=== PATIENT | female | born 1965 | race Two or more races ===

== ENCOUNTER 2016-09-29 23:21 | Emergency (ER) | payer SELFPAY ==
[~2016-09-29] VITALS: Ht 162.6 cm; Wt 65.8 kg
[~2016-09-29 23:21] MED LIST: ACYC400T PO; ALPR0.257 PO; ALPR0.5T6 PO; AMIT25TA PO; ASPI-482 PO; CYAN1TAB28 PO; ORPH100T PO; RANI150C PO; SIMV10TA3 PO; TRAM50TA PO
[2016-09-30] MEDS ORDERED: PROCHLORPERAZINE 10 MG/2 ML VIAL. IV ONE
[2016-09-30] MEDS ORDERED: KETOROLAC TROMETHAMINE 30 MG/ML SYRINGE. IV ONE
[2016-09-30] MEDS ORDERED: DIPHENHYDRAMINE 50 MG/ML VIAL IVP ONE ×2 (00:45)
[2016-09-30] MEDS ORDERED: DIPHENHYDRAMINE 50 MG/ML VIAL IM ONE (00:45)
--- NOTE | 2016-09-30 01:36 | PHYS DOC ---
Past Medical History Past Medical History: Anxiety, High Cholesterol Additional Past Medical Histor: bells palsy Past Surgical History: Tonsillectomy, Other Additional Past Surgical Histo: bilat breast reduction Alcohol Use: None Drug Use: None Adult General Chief Complaint Chief Complaint: HEADACHE HPI HPI Patient is a 51 year old female who presents with gradual onset headache since end of work today. She notes bilateral occiput headache that generalized including behind both eyes; throbbing and aching. She was driving home and began to feel anxious, dizzy and have ringing in ears. This improved when she pulled over and did breathing exercises. She also notes developing bilateral eye redness during this time. She denies specific eye pain or vision changes. She has current left bells palsy, but denies new numbness/tingling/weakness. She denies chest pain, dyspnea, f/c, n/v, photophobia, phonophobia, lacrimation , ear pain. Review of Systems Review of Systems Constitutional: Denies fever or chills [] Eyes: Denies change in visual acuity, redness, or eye pain [] HENT: Denies nasal congestion or sore throat [] Respiratory: Denies cough or shortness of breath [] Cardiovascular: No additional information not addressed in HPI [] GI: Denies abdominal pain, nausea, vomiting, bloody stools or diarrhea [] : Denies dysuria or hematuria [] Musculoskeletal: Denies back pain or joint pain [] Integument: Denies rash or skin lesions [] Neurologic: Denies focal weakness or sensory changes [] Endocrine: Denies polyuria or polydipsia [] Current Medications Current Medications Current Medications Medications (Trade) Dose Ordered Sig/Matias Start Time Stop Time Status Last Admin Dose Admin Diphenhydramine HCl (Benadryl) 25 mg 1X ONCE 09/30/16 00:45 09/30/16 00:46 DC 09/30/16 00:38 25 MG Ketorolac Tromethamine (Toradol) 15 mg 1X ONCE 09/30/16 00:00 09/30/16 00:05 DC 09/30/16 00:03 15 MG Prochlorperazine Edisylate (Compazine) 10 mg 1X ONCE 09/30/16 00:00 09/30/16 00:05 DC 09/30/16 00:02 10 MG Allergies Allergies Allergies Coded Allergies Type Severity Reaction Last Updated Verified azithromycin Allergy Intermediate 04/12/15 No niacin Allergy Intermediate burning sensation 04/12/15 Yes Physical Exam Physical Exam Constitutional: Well developed, well nourished, no acute distress, non-toxic appearance. [] HENT: Normocephalic, atraumatic, bilateral external ears normal, oropharynx moist, no oral exudates, nose normal. [] Eyes: PERRLA, EOMI, conjunctiva normal, no discharge; Mild bilateral scleral injection. Clear corneas. [] Neck: Normal range of motion, supple. [] Cardiovascular:Heart rate regular rhythm [] Lungs & Thorax: Bilateral breath sounds clear to auscultation [] Abdomen: Bowel sounds normal, soft, no tenderness. [] Skin: Warm, dry, no erythema, no rash. [] Back: Normal ROM. [] Extremities: ROM intact, no edema. [] Neurologic: Alert and oriented X 3, normal motor function, normal sensory function, no focal deficits noted, cranial nerves II through XII intact other than mild left facial weakness including forehead, no pronator drift. [] Psychologic: Affect normal, judgement normal, mood normal. [] Current Patient Data Vital Signs Vital Signs Date Time Temp Pulse Resp B/P Pulse Ox O2 Delivery O2 Flow Rate FiO2 09/30/16 02:16 63 20 134/83 94 Room Air 09/29/16 23:30 98.0 98.0 Course & Med Decision Making Course & Med Decision Making Pertinent Labs and Imaging studies reviewed. (See chart for details) She required a second dose of benadryl for akathisia symptoms after meds. She is now feeling much better and would like to go home. Return precautions given. She and understood and agreed with plan. Dragon Disclaimer Dragon Disclaimer This electronic medical record was generated, in whole or in part, using a voice recognition dictation system. Departure Departure Impression: Primary Impression: Headache Disposition: HOME, SELF-CARE Condition: STABLE Referrals: MATT BRAR MD (PCP) Patient Instructions: General Headache Without Cause, [id number] Additional Instructions: Follow-up with your primary care doctor. Return for any concerns. Problem Qualifiers Primary Impression: Headache Headache type: unspecified Headache chronicity pattern: acute headache Intractability: not intractable Qualified Code: R51 - Headache Narciso HAAS MD 28, 2017 01:36
[2016-09-30 02:16] VITALS: BP 134/83
== END 2016-09-30 02:17 | disposition home or self-care (01) ==
LOC: ER 23:21
DX: R51 Headache (principal); F41.9 Anxiety disorder, unspecified; E78.00 Pure hypercholesterolemia, unspecified; Z88.1 Allergy status to other antibiotic agents
CPT/HCPCS: 96374; 96375; 99284; J0780; J1200; J1885

== ENCOUNTER 2017-09-19 20:24 | Inpatient (IN) | payer BC ==
[2017-09-19 20:47] LABS: ADD MAN DIFF? NO
[2017-09-19 20:49] LABS: BASO # 0.1 x10^3/uL (0.0-0.2); BASO % 1 % (0-3); EOS # 0.1 x10^3/uL (0.0-0.7); EOS % 2 % (0-3); HEMATOCRIT 40.2 % (36.0-47.0); HEMOGLOBIN 13.8 g/dL (12.0-15.5); LYMPH # 2.8 x10^3/uL (1.0-4.8); LYMPH % 49 % (24-48); MEAN CORPUSCULAR HEMOGLOBIN 32 pg (25-35); MEAN CORPUSCULAR HGB CONC 34 g/dL (31-37); MEAN CORPUSCULAR VOLUME 93 fL (79-100); MONO # 0.4 x10^3/uL (0.0-1.1); MONO % 7 % (0-9); NEUT # 2.3 x10^3uL (1.8-7.7); NEUT % 41 % (31-73); PLATELET COUNT 347 x10^3/uL (140-400); RED BLOOD COUNT 4.32 x10^6/uL (3.50-5.40); RED CELL DISTRIBUTION WIDTH 13.1 % (11.5-14.5); WHITE BLOOD COUNT 5.6 x10^3/uL (4.0-11.0)
[2017-09-19] MEDS: ASPIRIN 325 MG TABLET PO (20:56)
[2017-09-19] MEDS: NITROGLYCERIN SUBLINGUAL 0.4 MG BOTTLE OF 25. SL (20:56)
[2017-09-19 21:04] LABS: ANION GAP 11 (6-14); BLOOD UREA NITROGEN 12 mg/dL (7-20); BUN/CREATININE RATIO 13 (6-20); CALCIUM 8.7 mg/dL (8.5-10.1); CARBON DIOXIDE 28 mmol/L (21-32); CHLORIDE 103 mmol/L (98-107); CREATININE 0.9 mg/dL (0.6-1.0); GFR 66.3; GLUCOSE 119 mg/dL (70-99); INR 0.9 (0.8-1.1); POTASSIUM 3.9 mmol/L (3.5-5.1); PROTHROMBIN TIME PATIENT 11.6 SEC (11.7-14.0); SODIUM 142 mmol/L (136-145)
[2017-09-19 21:05] LABS: PARTIAL THROMBOPLASTIN TIME 29 SEC (24-38)
[2017-09-19 21:09] LABS: ALBUMIN 3.6 g/dL (3.4-5.0); ALK PHOS 127 U/L (46-116); ALT (SGPT) 59 U/L (14-59); AST (SGOT) 30 U/L (15-37); TOTAL BILIRUBIN 0.3 mg/dL (0.2-1.0); TOTAL PROTEIN 7.1 g/dL (6.4-8.2)
[2017-09-19 21:14] LABS: TROPONINI < 0.017 ng/mL (0.000-0.055)
[2017-09-19 21:15] LABS: NT-PRO BNP 28 pg/mL (0-124)
[2017-09-19] MEDS: MORPHINE SULFATE 4 MG/ML DISP.SYRIN. IV/SQ (21:22)
[2017-09-19] MEDS ORDERED: NITROGLYCERIN SUBLINGUAL 0.4 MG BOTTLE OF 25. SL (22:15)
[2017-09-19] MEDS ORDERED: MORPHINE SULFATE 2 MG/ML DISP.SYRIN. IV (22:15)
[2017-09-19] MEDS ORDERED: ONDANSETRON PF 4 MG/2 ML VIAL. IV (22:15)
[2017-09-19] MEDS: ACETAMINOPHEN 325 MG TABLET. PO (23:38)
[2017-09-20] MEDS ORDERED: traMADol 50 MG TABLET PO (01:30)
[2017-09-20] MEDS: ALPRAZolam 0.5 MG TABLET PO (01:36)
[2017-09-20] MEDS: IV NORMAL SALINE 1000ML BAG 1,000 ML IV ×4 (03:22→12:12)
[2017-09-20 05:46] LABS: ADD MAN DIFF? NO
[2017-09-20 06:01] LABS: BASO % 1 % (0-3); EOS # 0.1 x10^3/uL (0.0-0.7); EOS % 2 % (0-3); HEMATOCRIT 37.7 % (36.0-47.0); HEMOGLOBIN 12.4 g/dL (12.0-15.5); LYMPH # 3.3 x10^3/uL (1.0-4.8); LYMPH % 44 % (24-48); MEAN CORPUSCULAR HEMOGLOBIN 31 pg (25-35); MEAN CORPUSCULAR HGB CONC 33 g/dL (31-37); MEAN CORPUSCULAR VOLUME 94 fL (79-100); MONO # 0.5 x10^3/uL (0.0-1.1); MONO % 6 % (0-9); NEUT # 3.5 x10^3uL (1.8-7.7); NEUT % 48 % (31-73); PLATELET COUNT 316 x10^3/uL (140-400); RED CELL DISTRIBUTION WIDTH 13.1 % (11.5-14.5); WHITE BLOOD COUNT 7.4 x10^3/uL (4.0-11.0)
[2017-09-20 06:48] LABS: ANION GAP 8 (6-14); BLOOD UREA NITROGEN 14 mg/dL (7-20); CALCIUM 8.6 mg/dL (8.5-10.1); CARBON DIOXIDE 29 mmol/L (21-32); CHLORIDE 105 mmol/L (98-107); CREATININE 0.8 mg/dL (0.6-1.0); GFR 75.9; GLUCOSE 102 mg/dL (70-99); POTASSIUM 3.7 mmol/L (3.5-5.1); SODIUM 142 mmol/L (136-145)
[2017-09-20 07:13] LABS: TROPONINI < 0.017 ng/mL (0.000-0.055)
[2017-09-20 07:23] LABS: BILIRUBIN,URINE NEGATIVE (NEG); CLARITY,URINE CLEAR; COLOR,URINE YELLOW; GLUCOSE,URINE NEGATIVE (NEG); NITRITE,URINE NEGATIVE (NEG); PROTEIN,URINE NEGATIVE (NEG-TRACE); UROBILINOGEN,URINE 0.2 mg/dL (0.2 mg/dL)
[2017-09-20 07:35] LABS: BACTERIA,URINE 0 /HPF (0-FEW); RBC,URINE 0 /HPF (0-2); SQUAMOUS EPITHELIAL CELL,UR MOD /LPF
[2017-09-20] MEDS: ASPIRIN CHEWABLE 81 MG TABLET. PO (08:03)
[2017-09-20] MEDS ORDERED: ACETAMINOPHEN 325 MG TABLET. PO (08:45)
[2017-09-20] MEDS ORDERED: KETOROLAC 15 MG/ML VIAL. IV (08:45)
[2017-09-20 10:36] LABS: TROPONINI < 0.017 ng/mL (0.000-0.055)
[2017-09-20 10:42] LABS: CHOLESTEROL 251 mg/dL (0-200); HDLC 29 mg/dL (40-60); NON-HDL CHOLESTEROL 222 mg/dL (0-129); TRIGLYCERIDES 529 mg/dL (0-150); VLDLC 106 mg/dL (0-40)
[2017-09-20 10:46] LABS: CHOLESTEROL/HDL RATIO 8.7
[2017-09-20] MEDS: MORPHINE SULFATE 2 MG/ML DISP.SYRIN. IV (10:55)
[2017-09-20] MEDS ORDERED: ASPIRIN ENTERIC COATED 81 MG TABLET.DR. PO (17:00)
[2017-09-20] MEDS ORDERED: ATORVASTATIN CALCIUM 10 MG TABLET. PO (21:00)
[2017-09-20] MEDS ORDERED: AMITRIPTYLINE HCL 25 MG TABLET. PO (21:00)
[2017-09-20] MEDS ORDERED: ATORVASTATIN CALCIUM 40 MG TABLET. PO (21:00)
== END 2017-09-20 19:05 | disposition home or self-care (01) | DRG 392 ==
LOC: ER 20:24 → 5 NORTH 21:54
DX: K21.9 Gastro-esophageal reflux disease without esophagitis (principal); E78.00 Pure hypercholesterolemia, unspecified; R07.89 Other chest pain; E78.5 Hyperlipidemia, unspecified; I10 Essential (primary) hypertension; Z82.49 Family history of ischemic heart disease and other diseases of the circulatory system; Z83.3 Family history of diabetes mellitus; F41.9 Anxiety disorder, unspecified; G51.0 Bell's palsy; Z88.1 Allergy status to other antibiotic agents
CPT/HCPCS: 36415; 71045; 80048; 80053; 80061; 81001; 83880; 84484; 85025; 85379; 85610; 85730; 93005; J2270; J7030

== ENCOUNTER → 2017-10-12 | Outpatient (CLI) | payer BC | END | disposition home or self-care (01) | LOC: ECHO 12:58 | DX: R07.9 Chest pain, unspecified (principal) | CPT/HCPCS: 93017; 93350 ==

== ENCOUNTER 2017-10-29 10:36 | Inpatient (IN) | payer BC ==
[2017-10-29 12:23] LABS: BILIRUBIN,URINE NEGATIVE (NEG); CLARITY,URINE CLEAR; COLOR,URINE YELLOW; GLUCOSE,URINE NEGATIVE (NEG); NITRITE,URINE NEGATIVE (NEG); PROTEIN,URINE NEGATIVE (NEG-TRACE); UROBILINOGEN,URINE 0.2 mg/dL (0.2 mg/dL)
[2017-10-29 12:24] LABS: BARBITURATES NEG (NEG); BENZODIAZEPINES POS (NEG); CANNABINOIDS NEG (NEG); COCAINE NEG (NEG); METHADONE NEG (NEG); OPIATES NEG (NEG); PHENCYCLIDINE NEG (NEG)
[2017-10-29 12:27] LABS: AMPHETAMINE/METHAMPHETAMINE NEG (NEG); ETHANOL, URINE NEG (NEG)
[2017-10-29 12:30] LABS: ADD MAN DIFF? NO
[2017-10-29 12:37] LABS: BACTERIA,URINE 0 /HPF (0-FEW); RBC,URINE 0 /HPF (0-2); SQUAMOUS EPITHELIAL CELL,UR MOD /LPF; WBC,URINE 0 /HPF (0-4)
[2017-10-29 12:38] LABS: BASO % 1 % (0-3); EOS % 1 % (0-3); HEMATOCRIT 40.1 % (36.0-47.0); HEMOGLOBIN 13.6 g/dL (12.0-15.5); LYMPH # 2.3 x10^3/uL (1.0-4.8); LYMPH % 39 % (24-48); MEAN CORPUSCULAR HEMOGLOBIN 31 pg (25-35); MEAN CORPUSCULAR HGB CONC 34 g/dL (31-37); MEAN CORPUSCULAR VOLUME 91 fL (79-100); MONO # 0.4 x10^3/uL (0.0-1.1); MONO % 6 % (0-9); NEUT # 3.1 x10^3uL (1.8-7.7); NEUT % 53 % (31-73); PLATELET COUNT 309 x10^3/uL (140-400); RED CELL DISTRIBUTION WIDTH 12.1 % (11.5-14.5); WHITE BLOOD COUNT 5.9 x10^3/uL (4.0-11.0)
[2017-10-29 12:54] LABS: PROTHROMBIN TIME PATIENT 12.3 SEC (11.7-14.0)
[2017-10-29 12:58] LABS: ANION GAP 10 (6-14); BLOOD UREA NITROGEN 13 mg/dL (7-20); CARBON DIOXIDE 25 mmol/L (21-32); CHLORIDE 105 mmol/L (98-107); CREATININE 0.7 mg/dL (0.6-1.0); GFR 88.6; GLUCOSE 113 mg/dL (70-99); SODIUM 140 mmol/L (136-145)
[2017-10-29 13:00] LABS: TROPONINI < 0.017 ng/mL (0.000-0.055)
[2017-10-29 13:03] LABS: ALBUMIN 3.3 g/dL (3.4-5.0); ALK PHOS 119 U/L (46-116); ALT (SGPT) 36 U/L (14-59); AST (SGOT) 21 U/L (15-37); DIRECT BILIRUBIN 0.1 mg/dL (0.0-0.2); LIPASE 129 U/L (73-393); MAGNESIUM 2.1 mg/dL (1.8-2.4); TOTAL BILIRUBIN 0.4 mg/dL (0.2-1.0); TOTAL PROTEIN 7.2 g/dL (6.4-8.2)
[2017-10-29 13:04] LABS: NT-PRO BNP 77 pg/mL (0-124); THYROID STIM HORMONE (TSH) 1.811 uIU/mL (0.358-3.74)
[2017-10-29 13:04] LABS: CKMB INDEX 0.9 % (0-4); CREATINE KINASE 116 U/L (26-192)
[2017-10-29 13:23] LABS: NEG OBC UR NEG; POS OBC UR POS; U PREG PATIENT NEGATIVE (NEG)
[2017-10-29] MEDS ORDERED: VANCOMYCIN PER PHARMACY MC (14:15)
[2017-10-29] MEDS ORDERED: PIP/TAZO PER PHARMACY MC (14:15)
[2017-10-29] MEDS ORDERED: levOFLOXacin PER PHARMACY. MC (14:15)
[2017-10-29] MEDS ORDERED: ONDANSETRON PF 4 MG/2 ML VIAL. IV ×2 (14:30→16:30)
[2017-10-29] MEDS: ASPIRIN 325 MG TABLET PO (14:49)
[2017-10-29] MEDS ORDERED: traMADol 50 MG TABLET PO (16:30)
[2017-10-29] MEDS ORDERED: MORPHINE SULFATE 2 MG/ML DISP.SYRIN. IV (16:30)
[2017-10-29] MEDS ORDERED: hydrALAZINE 20 MG/ML VIAL. IVP (16:30)
[2017-10-29] MEDS ORDERED: DOCUSATE SODIUM 100 MG CAPSULE. PO (16:30)
[2017-10-29 18:16] LABS: TROPONINI < 0.017 ng/mL (0.000-0.055)
[2017-10-29 19:31] LABS: VITAMIN-B12 1630 pg/mL (247-911)
[2017-10-29] MEDS: ENOXAPARIN 40 MG/0.4 ML SYRINGE. SQ (21:00)
[2017-10-29 21:15] LABS: TROPONINI < 0.017 ng/mL (0.000-0.055)
[2017-10-29] MEDS: ALPRAZolam 0.5 MG TABLET PO (23:51)
[2017-10-29] MEDS: ACETAMINOPHEN 325 MG TABLET. PO (23:51)
[2017-10-30 05:17] LABS: ADD MAN DIFF? NO
[2017-10-30 05:34] LABS: BASO % 1 % (0-3); EOS # 0.1 x10^3/uL (0.0-0.7); EOS % 2 % (0-3); HEMATOCRIT 40.3 % (36.0-47.0); HEMOGLOBIN 13.5 g/dL (12.0-15.5); LYMPH # 2.9 x10^3/uL (1.0-4.8); LYMPH % 50 % (24-48); MEAN CORPUSCULAR HEMOGLOBIN 31 pg (25-35); MEAN CORPUSCULAR HGB CONC 34 g/dL (31-37); MEAN CORPUSCULAR VOLUME 92 fL (79-100); MONO # 0.3 x10^3/uL (0.0-1.1); MONO % 6 % (0-9); NEUT # 2.5 x10^3uL (1.8-7.7); NEUT % 43 % (31-73); PLATELET COUNT 299 x10^3/uL (140-400); RED BLOOD COUNT 4.38 x10^6/uL (3.50-5.40); RED CELL DISTRIBUTION WIDTH 12.5 % (11.5-14.5); WHITE BLOOD COUNT 5.9 x10^3/uL (4.0-11.0)
[2017-10-30 05:47] LABS: ANION GAP 6 (6-14); BLOOD UREA NITROGEN 14 mg/dL (7-20); CALCIUM 9.3 mg/dL (8.5-10.1); CARBON DIOXIDE 30 mmol/L (21-32); CHLORIDE 105 mmol/L (98-107); CREATININE 0.7 mg/dL (0.6-1.0); GFR 88.6; GLUCOSE 114 mg/dL (70-99); POTASSIUM 4.1 mmol/L (3.5-5.1); SODIUM 141 mmol/L (136-145)
[2017-10-30 09:49] LABS: CHOLESTEROL 224 mg/dL (0-200); HDLC 28 mg/dL (40-60); LDLC 124 mg/dL (0-100); NON-HDL CHOLESTEROL 196 mg/dL (0-129); TRIGLYCERIDES 358 mg/dL (0-150); VLDLC 72 mg/dL (0-40)
[2017-10-30] MEDS: ASPIRIN 325 MG TABLET PO (11:16)
[2017-10-30] MEDS: ALPRAZolam 0.25 MG TABLET PO (11:25)
[2017-10-30] MEDS: CHOLECALCIFEROL (VITAMIN D3) 1,000 UNIT TABLET PO (11:25)
[2017-10-30] MEDS: FENOFIBRATE 54 MG TABLET. PO (14:10)
[2017-10-30] MEDS ORDERED: ATORVASTATIN CALCIUM 20 MG TABLET PO (21:00)
== END 2017-10-30 15:10 | disposition home or self-care (01) | DRG 312 ==
LOC: ER 10:36 → 5 NORTH 14:05
DX: R55 Syncope and collapse (principal); E66.8 Other obesity; W18.39XA Other fall on same level, initial encounter; E78.5 Hyperlipidemia, unspecified; F41.9 Anxiety disorder, unspecified; I10 Essential (primary) hypertension; R00.1 Bradycardia, unspecified; Z82.49 Family history of ischemic heart disease and other diseases of the circulatory system; Z83.3 Family history of diabetes mellitus; Y93.89 Activity, other specified; Y92.89 Other specified places as the place of occurrence of the external cause; Y99.8 Other external cause status; Z68.30 Body mass index [BMI] 30.0-30.9, adult
CPT/HCPCS: 36415; 70551; 71045; 80048; 80061; 80076; 80307; 81001; 81025; 82306; 82553; 82607; 83690; 83735; 83880; 84443; 84484; 85025; 85610; 93005; 93880; 95816; 99285; 99285-25

== ENCOUNTER 2018-06-19 13:11 | Inpatient (IN) | payer BC ==
[~2018-06-19] VITALS: Ht 162.6 cm; Wt 78.0 kg
[~2018-06-19 13:11] MED LIST changes: +ALPR0.254 PO; +ASPI-630 PO; +ATOR10TA60 PO; +ATOR20TA58 PO; +CHOL10002 PO; +DEXT15DR5 EACHEYE; +DIPH50CA3 PO; +FENO54TA PO; +HYDR-2758 PO; +LOVA40TA2 PO; +ONDA4TAB10 SL; +PRED20TA PO; +SULF1TAB24 PO; +[UNRECOGNIZED DRUG - CODE] PO
[2018-06-19 14:27] LABS: BASO % 1 % (0-3); EOS # 0.1 x10^3/uL (0.0-0.7); EOS % 1 % (0-3); HEMATOCRIT 40.8 % (36.0-47.0); LYMPH # 2.1 x10^3/uL (1.0-4.8); LYMPH % 41 % (24-48); MEAN CORPUSCULAR HEMOGLOBIN 31 pg (25-35); MEAN CORPUSCULAR HGB CONC 34 g/dL (31-37); MEAN CORPUSCULAR VOLUME 90 fL (79-100); MONO # 0.3 x10^3/uL (0.0-1.1); MONO % 6 % (0-9); NEUT # 2.7 x10^3uL (1.8-7.7); NEUT % 52 % (31-73); PLATELET COUNT 358 x10^3/uL (140-400); RED BLOOD COUNT 4.53 x10^6/uL (3.50-5.40); RED CELL DISTRIBUTION WIDTH 12.5 % (11.5-14.5); WHITE BLOOD COUNT 5.2 x10^3/uL (4.0-11.0)
[2018-06-19] MEDS ORDERED: fentaNYL PF VIAL 100 MCG/2 ML VIAL IV ONE (14:30)
[2018-06-19] MEDS ORDERED: ONDANSETRON PF 4 MG/2 ML VIAL. IV ONE (14:30)
--- NOTE | 2018-06-19 14:30 | EKG ---
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
[2018-06-19 14:38] LABS: CALCIUM 9.1 mg/dL (8.5-10.1); CREATININE 0.7 mg/dL (0.6-1.0); GFR 88.2; POTASSIUM 3.8 mmol/L (3.5-5.1)
[2018-06-19 14:42] LABS: PROTHROMBIN TIME PATIENT 12.6 SEC (11.7-14.0)
[2018-06-19 14:44] LABS: ALBUMIN 3.5 g/dL (3.4-5.0); ALBUMIN/GLOBULIN RATIO 0.9 (1.0-1.7); TOTAL BILIRUBIN 0.5 mg/dL (0.2-1.0); TOTAL PROTEIN 7.4 g/dL (6.4-8.2)
--- NOTE | 2018-06-19 14:44 | RAD ---
CT HEAD WO CONTRAST dated 06/19/2018 2:03 PM Indication: Left-sided weakness.LEFT SIDE WEAKNESS, SHARP PAIN RIGHT SIDE OF HEAD, HEADACHES, BILAT HANDS & FINGERS NUMB, ONSET 06/15/2018. H/O TEJADA'S PALSY 2010. Comparison: MRI dated 10/30/2017. Technique: Contiguous axial imaging the head was performed from skull base to vertex. One or more of the following individualized dose reduction techniques were utilized for this examination: 1. Automated exposure control 2. Adjustment of the mA and/or kV according to patient size 3. Use of iterative reconstruction technique Findings: Ventricles and sulci are within normal limits for age. No midline shift or mass effect. Brain parenchyma is of normal attenuation. No hemorrhage or extra-axial collection. Posterior fossa and brainstem unremarkable. Visualized paranasal sinuses and mastoid air cells are clear. No apparent calvarial abnormality. IMPRESSION: No evidence of acute intracranial abnormality. Electronically signed by: Kyler Power MD (06/19/2018 2:40 PM) [id number]
--- NOTE | 2018-06-19 15:04 | RAD ---
EXAM: Chest, 2 views. HISTORY: Weakness. COMPARISON: None. FINDINGS: 2 views of the chest are obtained. There is no infiltrate, pleural effusion or pneumothorax. There is lingular and left basilar atelectasis. IMPRESSION: No acute pulmonary finding. Electronically signed by: Maureen Jerome MD (06/19/2018 3:01 PM) [place] [id number]
--- NOTE | 2018-06-19 15:15 | PHYS DOC ---
Past Medical History Past Medical History: Anxiety, High Cholesterol, Migraines, Other Additional Past Medical Histor: bells palsy, HIGH TRIGLYCERIDE Past Surgical History: Tonsillectomy, Other Additional Past Surgical Histo: bilat breast reduction Alcohol Use: None Drug Use: None Adult General Chief Complaint Chief Complaint: NEURO SYMPTOMS/DEFICITS HPI HPI Patient is a 53 year old female who presents with left-sided weakness and numbness. Patient reports this started on Friday, June 15, 2018. 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 She reports she regained about 70% of her deficit after the Whiteside's palsy. [] Review of Systems Review of Systems Constitutional: Denies fever or chills [] Eyes: Denies change in visual acuity Respiratory: Denies cough or shortness of breath [] Cardiovascular: Denies chest pains or palpitations GI: Denies abdominal pain. Reports nausea without vomiting Musculoskeletal: Denies back pain or joint pain [] Integument: Denies rash or skin lesions [] Neurologic: Reports headache at the crown of the head, left-sided weakness and numbness All other systems were reviewed and found to be within normal limits, except as documented in this note. Current Medications Current Medications Current Medications Medications (Trade) Dose Ordered Sig/Matias Start Time Stop Time Status Last Admin Dose Admin Fentanyl Citrate (Fentanyl 2ml Vial) 50 mcg 1X ONCE 06/19/18 14:30 06/19/18 14:31 DC 06/19/18 14:37 50 MCG Ondansetron HCl (Zofran) 4 mg 1X ONCE 06/19/18 14:30 06/19/18 14:31 DC 06/19/18 14:37 4 MG Allergies Allergies Allergies Coded Allergies Type Severity Reaction Last Updated Verified azithromycin Allergy Intermediate 04/12/15 No niacin Allergy Intermediate burning sensation 04/12/15 Yes Physical Exam Physical Exam Constitutional: Well developed, well nourished, no acute distress, non-toxic appearance. [] HENT: Normocephalic, atraumatic, bilateral external ears normal, oropharynx moist, no oral exudates, nose normal. [] Eyes: PERRLA, EOMI, conjunctiva normal, no discharge. [] Neck: Normal range of motion, no tenderness, supple, no stridor. [] Cardiovascular:Heart rate regular rhythm, no murmur [] Lungs & Thorax: Bilateral breath sounds clear to auscultation [] Abdomen: Bowel sounds normal, soft, no tenderness, no masses, no pulsatile masses. [] Skin: Warm, dry, no erythema, no rash. [] Back: No tenderness, no CVA tenderness. [] Extremities: No tenderness, no cyanosis, no clubbing, ROM intact, no edema. [] Neurologic: Alert and oriented X 3, normal motor function, normal sensory function, no focal deficits noted. [] Psychologic: Affect normal, judgement normal, mood normal. [] Current Patient Data Vital Signs Vital Signs Date Time Temp Pulse Resp B/P (MAP) Pulse Ox O2 Delivery O2 Flow Rate FiO2 06/19/18 14:20 98.4 67 18 123/62 (82) 96 Room Air 98.4 Lab Values Laboratory Tests Test 06/19/18 14:20 White Blood Count 5.2 x10^3/uL (4.0-11.0) Red Blood Count 4.53 x10^6/uL (3.50-5.40) Hemoglobin 14.0 g/dL (12.0-15.5) Hematocrit 40.8 % (36.0-47.0) Mean Corpuscular Volume 90 fL (79-100) Mean Corpuscular Hemoglobin 31 pg (25-35) Mean Corpuscular Hemoglobin Concent 34 g/dL (31-37) Red Cell Distribution Width 12.5 % (11.5-14.5) Platelet Count 358 x10^3/uL (140-400) Neutrophils (%) (Auto) 52 % (31-73) Lymphocytes (%) (Auto) 41 % (24-48) Monocytes (%) (Auto) 6 % (0-9) Eosinophils (%) (Auto) 1 % (0-3) Basophils (%) (Auto) 1 % (0-3) Neutrophils # (Auto) 2.7 x10^3uL (1.8-7.7) Lymphocytes # (Auto) 2.1 x10^3/uL (1.0-4.8) Monocytes # (Auto) 0.3 x10^3/uL (0.0-1.1) Eosinophils # (Auto) 0.1 x10^3/uL (0.0-0.7) Basophils # (Auto) 0.0 x10^3/uL (0.0-0.2) Prothrombin Time 12.6 SEC (11.7-14.0) Prothrombin Time INR 1.0 (0.8-1.1) Sodium Level 144 mmol/L (136-145) Potassium Level 3.8 mmol/L (3.5-5.1) Chloride Level 106 mmol/L (98-107) Carbon Dioxide Level 27 mmol/L (21-32) Anion Gap 11 (6-14) Blood Urea Nitrogen 10 mg/dL (7-20) Creatinine 0.7 mg/dL (0.6-1.0) Estimated GFR (Cockcroft-Gault) 88.2 BUN/Creatinine Ratio 14 (6-20) Glucose Level 106 mg/dL (70-99) H Calcium Level 9.1 mg/dL (8.5-10.1) Total Bilirubin 0.5 mg/dL (0.2-1.0) Aspartate Amino Transferase (AST) 33 U/L (15-37) Alanine Aminotransferase (ALT) 62 U/L (14-59) H Alkaline Phosphatase 125 U/L (46-116) H Troponin I Quantitative < 0.017 ng/mL (0.000-0.055) Total Protein 7.4 g/dL (6.4-8.2) Albumin 3.5 g/dL (3.4-5.0) Albumin/Globulin Ratio 0.9 (1.0-1.7) L Laboratory Tests 06/19/18 14:20 Laboratory Tests 06/19/18 14:20 EKG EKG NSR, rate 65, normal axis, no STEMI[] Radiology/Procedures Radiology/Procedures [] Course & Med Decision Making Course & Med Decision Making Pertinent Labs and Imaging studies reviewed. (See chart for details) Discussed with Dr. Valentine, accepts patient for admission Plan: Admit for further evaluation Dragon Disclaimer Dragon Disclaimer This electronic medical record was generated, in whole or in part, using a voice recognition dictation system. Departure Departure Impression: Primary Impression: Left-sided weakness Disposition: ADMITTED INPATIENT Admitting Physician: Other (Serge) Condition: STABLE Referrals: MATT BRAR MD (PCP) SARAY VAZQUEZ [employer]OT[employer] OPERATOR Jun 19, 2018 15:15
[2018-06-19] MEDS ORDERED: fentaNYL PF VIAL 100 MCG/2 ML VIAL IV PRN (16:45)
[2018-06-19] MEDS ORDERED: ONDANSETRON PF 4 MG/2 ML VIAL. IV PRN (16:45)
[2018-06-19 17:00] VITALS: BP 128/69
[2018-06-19] MEDS ORDERED: ATOR20TA58 PO (17:39)
[2018-06-19] MEDS ORDERED: CHOL500050 PO (17:39)
[2018-06-19 19:00] VITALS: BP 126/55
[2018-06-19] MEDS ORDERED: KETOROLAC 15 MG/ML VIAL. IV PRN (19:30)
[2018-06-19] MEDS: PROCHLORPERAZINE 10 MG/2 ML VIAL. IM ONE ×2 (19:30→20:35)
[2018-06-19] MEDS ORDERED: PROCHLORPERAZINE 10 MG/2 ML VIAL. IV ONE (21:00)
[2018-06-19] MEDS ORDERED: PROCHLORPERAZINE 10 MG/2 ML VIAL. IV PRN (21:45)
[2018-06-19] MEDS ORDERED: KETOROLAC 30 MG/ML VIAL. IV PRN (21:45)
--- NOTE | 2018-06-19 21:53 | PDOC1 ---
History and Physical Date of Admission Date of Admission DATE: 06/19/18 TIME: 21:42 Identification/Chief Complaint Chief Complaint Left sided weakness Source Source: Patient History of Present Illness History of Present Illness 53 year old female w/ PMHx HLD, anxiety who p/w left-sided weakness and numbness. Began on Friday, June 15, 2018. 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 Patient reports she has a history of a prior Whiteside's palsy affecting the left side of her face in 2010 with residual deficits, feels they are currently worse. She denies CP, shortness of breath, but notes a right sided headache with right ocular pain associated, she asks if this is temporal arteritis and would like to be tested. She also notes she was just in [place] caring for her ill father, returned this past sunday 1 week ago and had travelers diarrhea for 3 days after returning , feels her symptoms began soon after the diarrhea resolved. EKG was NSR and CT head showed no intracranial abnormality. She was admitted for concern for CVA Past Medical History Cardiovascular: HTN, Hyperlipidemia Pulmonary: No pertinent hx CENTRAL NERVOUS SYSTEM: Other GI: Other Heme/Onc: No pertinent hx Hepatobiliary: No pertinent hx Psych: Anxiety Rheumatologic: No pertinent hx Infectious disease: No pertinent hx Renal/: No pertinent hx Endocrine: No pertinent hx Past Surgical History Past Surgical History: Tonsillectomy Family History Family History: Diabetes, Hypertension Social History Smoke: No ALCOHOL: none Drugs: None Current Problem List Problem List Problems Medical Problems: (1) Left-sided weakness Status: Acute Current Medications Current Medications Current Medications Ondansetron HCl (Zofran) 4 mg 1X ONCE IV Last administered on 06/19/18at 14:37 ; Start 06/19/18 at 14:30; Stop 06/19/18 at 14:31; Status DC Fentanyl Citrate (Fentanyl 2ml Vial) 50 mcg 1X ONCE IV Last administered on at 14:37; Start 06/19/18 at 14:30; Stop 06/19/18 at 14:31; Status DC Ondansetron HCl (Zofran) 4 mg PRN Q8HRS PRN IV NAUSEA/VOMITING Last administered on 06/19/18at 17:48; Start 06/19/18 at 16:45; Stop 06/20/18 at 16 :44 Fentanyl Citrate (Fentanyl 2ml Vial) 50 mcg PRN Q1HR PRN IV PAIN Last administered on 06/19/18at 17:48; Start 06/19/18 at 16:45; Stop 06/20/18 at 16 :44 Ketorolac Tromethamine (Toradol 15mg Vial) 15 mg PRN Q6HRS PRN IV PAIN Last administered on 06/19/18at 20:34; Start 06/19/18 at 19:30; Stop 06/24/18 at 19 :29 Prochlorperazine Edisylate (Compazine) 10 mg 1X ONCE IM ; Start 06/19/18 at 19 :30; Stop 06/19/18 at 19:31; Status DC Prochlorperazine Edisylate (Compazine) 10 mg 1X ONCE IV Last administered on 06/19/18at 21:00; Start 06/19/18 at 21:00; Stop 06/19/18 at 21:01; Status DC Active Scripts Active Fenofibrate 54 Mg Tablet 54 Mg PO DAILY 30 Days Reported Vitamin D (Cholecalciferol (Vitamin D3)) 50,000 Unit Capsule 50,000 Unit PO WEEKLY Atorvastatin Calcium 20 Mg Tablet 1 Tab PO DAILY Aspirin 81 Mg Tab.chew 1 Tab PO DAILY Alprazolam 0.5 Mg Tablet 1 Tab PO HS Allergies Allergies: Coded Allergies: azithromycin (Unverified Allergy, Intermediate, 04/12/15) niacin (Verified Allergy, Intermediate, burning sensation, 04/12/15) ROS General: No: Chills, Night Sweats, Fatigue, Malaise, Appetite, Other PSYCHOLOGICAL ROS: No: Anxiety, Behavioral Disorder, Concentration difficultie , Decreased libido, Depression, Disorientation, Hallucinations, Hostility, Irritablity, Memory difficulties, Mood Swings, Obsessive thoughts, Physical abuse, Sexual abuse, Sleep disturbances, Suicidal ideation, Other Eyes: Yes Eye Pain; No Blurry vision, No Decreased vision, No Double vision, No Dry eyes, No Excessive tearing, No Itchy Eyes, No Loss of vision, No Photophobia, No Scotomata, No Uses contacts, No Uses glasses, No Other HEENT: YES: Heacaches, Visual Changes; No: Hearing change, Nasal congestion, Nasal discharge, Oral lesions, Sinus pain, Sore Throat, Epistaxis, Sneezing, Snoring, Tinnitus, Vertigo, Vocal changes, Other ALLERGY AND IMMUNOLOGY: No: Hives, Insect Bite Sensitivity, Itchy/Watery Eyes, Nasal Congestion, Post Nasal Drip, Seasonal Allergies, Other Hematological and Lymphatic: No: Bleeding Problems, Blood Clots, Blood Transfusions, Brusing, Night Sweats, Pallor, Swollen Lymph Nodes, Other ENDOCRINE: No: Breast Changes, Galactorrhea, Hair Pattern Changes, Hot Flashes , Malaise/lethargy, Mood Swings, Palpitations, Polydipsia/polyuria, Skin Changes , Temperature Intolerance, Unexpected Weight Changes, Other Breast: No New/Changing Breast Lumps, No Nipple changes, No Nipple discharge, No Other Respiratory: No: Cough, Hemoptysis, Orthopnea, Pleuritic Pain, Shortness of breath, SOB with excertion, Sputum Changes, Stridor, Tachypnea, Wheezing, Other Cardiovascular: No Chest Pain, No Palpitations, No Orthopnea, No Paroxysmal Noc. Dyspnea, No Edema, No Lt Headedness, No Other Gastrointestinal: Yes Nausea; No Vomiting, No Abdominal Pain, No Diarrhea, No Constipation, No Melena, No Hematochezia, No Other Genitourinary: No Dysuria, No Frequency, No Incontinence, No Hematuria, No Retention, No Discharge, No Urgency, No Pain, No Flank Pain, No Other, No , No , No , No , No , No , No Musculoskeletal: Yes Muscular Weakness Neurological: Yes Gait Disturbance, Yes Impaired Coord/balance, Yes Numbness/ Tingling Skin: No Dry Skin, No Eczema, No Hair Changes, No Lumps, No Mole Changes, No Mottling, No Nail Changes, No Pruritus, No Rash, No Skin Lesion Changes, No Other, No Acne Physical Exam General: Alert, Oriented X3, Cooperative, No acute distress HEENT: Atraumatic, PERRLA, EOMI, Mucous membr. moist/pink Lungs: Clear to auscultation, Normal air movement Heart: S1S2, RRR, no murmurs Abdomen: Normal bowel sounds, Soft, No tenderness, No hepatosplenomegaly, No masses Extremities: No clubbing, No cyanosis, No edema, Normal pulses, No tenderness/ swelling Skin: No rashes, No breakdown, No significant lesion Neuro: Normal speech, Strength at 5/5 X4 ext, Normal tone, Cranial nerves 3-12 NL, Reflexes 2+, Other (Decreased left leg and arm sensation to light touch, vibratory sense intact. Gait unsteady but when isolated no significant weakness) Vitals Vitals Vital Signs Date Time Temp Pulse Resp B/P (MAP) Pulse Ox O2 Delivery O2 Flow Rate FiO2 06/19/18 19:00 97.7 61 18 126/55 (78) 97 Room Air 97.7 Labs Labs Laboratory Tests Test 06/19/18 14:20 White Blood Count 5.2 x10^3/uL (4.0-11.0) Red Blood Count 4.53 x10^6/uL (3.50-5.40) Hemoglobin 14.0 g/dL (12.0-15.5) Hematocrit 40.8 % (36.0-47.0) Mean Corpuscular Volume 90 fL (79-100) Mean Corpuscular Hemoglobin 31 pg (25-35) Mean Corpuscular Hemoglobin Concent 34 g/dL (31-37) Red Cell Distribution Width 12.5 % (11.5-14.5) Platelet Count 358 x10^3/uL (140-400) Neutrophils (%) (Auto) 52 % (31-73) Lymphocytes (%) (Auto) 41 % (24-48) Monocytes (%) (Auto) 6 % (0-9) Eosinophils (%) (Auto) 1 % (0-3) Basophils (%) (Auto) 1 % (0-3) Neutrophils # (Auto) 2.7 x10^3uL (1.8-7.7) Lymphocytes # (Auto) 2.1 x10^3/uL (1.0-4.8) Monocytes # (Auto) 0.3 x10^3/uL (0.0-1.1) Eosinophils # (Auto) 0.1 x10^3/uL (0.0-0.7) Basophils # (Auto) 0.0 x10^3/uL (0.0-0.2) Prothrombin Time 12.6 SEC (11.7-14.0) Prothromb Time International Ratio 1.0 (0.8-1.1) Sodium Level 144 mmol/L (136-145) Potassium Level 3.8 mmol/L (3.5-5.1) Chloride Level 106 mmol/L (98-107) Carbon Dioxide Level 27 mmol/L (21-32) Anion Gap 11 (6-14) Blood Urea Nitrogen 10 mg/dL (7-20) Creatinine 0.7 mg/dL (0.6-1.0) Estimated GFR (Cockcroft-Gault) 88.2 BUN/Creatinine Ratio 14 (6-20) Glucose Level 106 mg/dL (70-99) Calcium Level 9.1 mg/dL (8.5-10.1) Total Bilirubin 0.5 mg/dL (0.2-1.0) Aspartate Amino Transf (AST/SGOT) 33 U/L (15-37) Alanine Aminotransferase (ALT/SGPT) 62 U/L (14-59) Alkaline Phosphatase 125 U/L (46-116) Troponin I Quantitative < 0.017 ng/mL (0.000-0.055) Total Protein 7.4 g/dL (6.4-8.2) Albumin 3.5 g/dL (3.4-5.0) Albumin/Globulin Ratio 0.9 (1.0-1.7) Laboratory Tests Test 06/19/18 14:20 White Blood Count 5.2 x10^3/uL (4.0-11.0) Red Blood Count 4.53 x10^6/uL (3.50-5.40) Hemoglobin 14.0 g/dL (12.0-15.5) Hematocrit 40.8 % (36.0-47.0) Mean Corpuscular Volume 90 fL (79-100) Mean Corpuscular Hemoglobin 31 pg (25-35) Mean Corpuscular Hemoglobin Concent 34 g/dL (31-37) Red Cell Distribution Width 12.5 % (11.5-14.5) Platelet Count 358 x10^3/uL (140-400) Neutrophils (%) (Auto) 52 % (31-73) Lymphocytes (%) (Auto) 41 % (24-48) Monocytes (%) (Auto) 6 % (0-9) Eosinophils (%) (Auto) 1 % (0-3) Basophils (%) (Auto) 1 % (0-3) Neutrophils # (Auto) 2.7 x10^3uL (1.8-7.7) Lymphocytes # (Auto) 2.1 x10^3/uL (1.0-4.8) Monocytes # (Auto) 0.3 x10^3/uL (0.0-1.1) Eosinophils # (Auto) 0.1 x10^3/uL (0.0-0.7) Basophils # (Auto) 0.0 x10^3/uL (0.0-0.2) Prothrombin Time 12.6 SEC (11.7-14.0) Prothromb Time International Ratio 1.0 (0.8-1.1) Sodium Level 144 mmol/L (136-145) Potassium Level 3.8 mmol/L (3.5-5.1) Chloride Level 106 mmol/L (98-107) Carbon Dioxide Level 27 mmol/L (21-32) Anion Gap 11 (6-14) Blood Urea Nitrogen 10 mg/dL (7-20) Creatinine 0.7 mg/dL (0.6-1.0) Estimated GFR (Cockcroft-Gault) 88.2 BUN/Creatinine Ratio 14 (6-20) Glucose Level 106 mg/dL (70-99) Calcium Level 9.1 mg/dL (8.5-10.1) Total Bilirubin 0.5 mg/dL (0.2-1.0) Aspartate Amino Transf (AST/SGOT) 33 U/L (15-37) Alanine Aminotransferase (ALT/SGPT) 62 U/L (14-59) Alkaline Phosphatase 125 U/L (46-116) Troponin I Quantitative < 0.017 ng/mL (0.000-0.055) Total Protein 7.4 g/dL (6.4-8.2) Albumin 3.5 g/dL (3.4-5.0) Albumin/Globulin Ratio 0.9 (1.0-1.7) VTE Prophylaxis Ordered VTE Prophylaxis Devices: No VTE Pharmacological Prophylaxi: Yes Assessment/Plan Assessment/Plan A/P: Left sided weakness - CVA vs complicated migraine Left facial droop - apparently residual from prior Whiteside's palsy, states this is worse Right ophthalmic pain - light sensitive, sounds like she has had this previously , sounds like paroxysmal hemicrania migraine, will consult neuro. Toradol and compazine for now with normal CT head findings are ok. Sed rate Diarrhea - resolving, likely was travelers diarrhea, will get stool sample if it continues HLD - on fish oil, statin, cont Anxiety - prn xanax Diet - general PPX - heparin FULL code Admit to wards to r/o CVA vs complicated migraine ENID WERNER MD Jun 19, 2018 21:53
[2018-06-19] MEDS: ALPRAZolam 0.5 MG TABLET PO SCH (22:04)
[2018-06-19 23:00] VITALS: BP 110/42
[2018-06-20 03:00] VITALS: BP 101/46
[2018-06-20 07:00] VITALS: BP 114/52
[2018-06-20] MEDS: ASPIRIN CHEWABLE 81 MG TABLET. PO SCH (08:44)
[2018-06-20] MEDS: FENOFIBRATE 54 MG TABLET. PO SCH (08:44)
[2018-06-20] MEDS: HEPARIN for SUB-Q USE 5,000 UNIT/ML VIAL. SQ SCH ×2 (08:45→21:00)
[2018-06-20] MEDS: SENNOSIDES/DOCUSATE 8.6/50MG TABLET. PO SCH ×2 (08:45→21:07)
[2018-06-20] MEDS ORDERED: GADOBUTROL 7.5 MMOL/7.5 ML VIAL IV ONE (10:30)
[2018-06-20 11:00] VITALS: BP 127/49
--- NOTE | 2018-06-20 11:22 | RAD ---
MRI Brain with and without contrast History: Left-sided weakness and facial droop, history of Whiteside's palsy, left CVA symptoms Technique: Multiplanar, multi sequential pre and postcontrast MR imaging was performed of the brain. Contrast: 7.5 cc Gadavist Comparison: 10/30/2017; May 11, 2011 Findings: There is no evidence of recent infarct or cytotoxic edema. The ventricles, sulci, and cisterns are within normal limits in size and configuration. There is no significant midline shift, intraaxial mass effect, or focal abnormal extra-axial fluid collection. There are a few small foci of nonenhancing T2 and FLAIR hyperintense signal of the bifrontal deep white matter and left extreme capsule unchanged. There is no new significant signal abnormality including hemosiderin deposition of the brain parenchyma. 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 There is no nodular parenchymal or leptomeningeal enhancement. There is preservation of the major intracranial flow-voids at the skull base. The cerebellar tonsils are normal in location. There is no significant abnormality of the pineal gland or pituitary gland. Paranasal sinuses are overall aerated. The mastoid air cells are aerated. There is preserved marrow signal of the clivus. Impression: 1. There is no evidence of recent infarct or new abnormal intracranial enhancement. Incidental note is again made of right parietal developmental venous anomaly. There a few scattered small foci of nonenhancing T2 and FLAIR hyperintense abnormality of the supratentorial parenchyma are unchanged, may be due to small focus of nonspecific gliosis. White matter changes can be seen in patients with migraine headaches if corresponding history. Electronically signed by: Anthony Wheeler MD (06/20/2018 11:19 AM) [email or web address]
--- NOTE | 2018-06-20 12:39 | PDOC ---
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 tension headache Diarrhea - resolving, likely was travelers diarrhea , resolved. HLD Anxiety - prn xanax plan: fu with neuro MRI brain neg for stroke cont asa, lipitor check vitb12, vitd, tsh PTOT dc tmr dvt ppx History of Present Illness History of Present Illness ROS: no fever, chills, sob or chest pain c/o severe headache yesterday, which is resolved with pain meds bl hands numbness came for left leg weakness, mild , still able to walk, but felt almost gave out 2 times yesterday. now still feels mild left leg weakness. exam 4/5 , right leg 5/5. bl hands 5/5. left facial droop. Vitals Vitals Vital Signs Date Time Temp Pulse Resp B/P (MAP) Pulse Ox O2 Delivery O2 Flow Rate FiO2 06/20/18 08:00 Room Air 06/20/18 07:00 97.5 60 18 114/52 (72) 94 97.5 Physical Exam Physical Exam ow still feels mild left leg weakness. exam 4/5 , right leg 5/5. bl hands 5/5. left facial droop. General: Alert, Oriented X3, Cooperative, No acute distress Abdomen: Normal bowel sounds, Soft, No tenderness, No hepatosplenomegaly, No masses Extremities: No clubbing, No cyanosis, No edema, Normal pulses, No tenderness/ swelling Skin: No rashes, No breakdown, No significant lesion Labs LABS Laboratory Tests Test 06/19/18 14:20 06/20/18 07:05 White Blood Count 5.2 x10^3/uL (4.0-11.0) Red Blood Count 4.53 x10^6/uL (3.50-5.40) Hemoglobin 14.0 g/dL (12.0-15.5) Hematocrit 40.8 % (36.0-47.0) Mean Corpuscular Volume 90 fL (79-100) Mean Corpuscular Hemoglobin 31 pg (25-35) Mean Corpuscular Hemoglobin Concent 34 g/dL (31-37) Red Cell Distribution Width 12.5 % (11.5-14.5) Platelet Count 358 x10^3/uL (140-400) Neutrophils (%) (Auto) 52 % (31-73) Lymphocytes (%) (Auto) 41 % (24-48) Monocytes (%) (Auto) 6 % (0-9) Eosinophils (%) (Auto) 1 % (0-3) Basophils (%) (Auto) 1 % (0-3) Neutrophils # (Auto) 2.7 x10^3uL (1.8-7.7) Lymphocytes # (Auto) 2.1 x10^3/uL (1.0-4.8) Monocytes # (Auto) 0.3 x10^3/uL (0.0-1.1) Eosinophils # (Auto) 0.1 x10^3/uL (0.0-0.7) Basophils # (Auto) 0.0 x10^3/uL (0.0-0.2) Prothrombin Time 12.6 SEC (11.7-14.0) Prothromb Time International Ratio 1.0 (0.8-1.1) Sodium Level 144 mmol/L (136-145) Potassium Level 3.8 mmol/L (3.5-5.1) Chloride Level 106 mmol/L (98-107) Carbon Dioxide Level 27 mmol/L (21-32) Anion Gap 11 (6-14) Blood Urea Nitrogen 10 mg/dL (7-20) Creatinine 0.7 mg/dL (0.6-1.0) Estimated GFR (Cockcroft-Gault) 88.2 BUN/Creatinine Ratio 14 (6-20) Glucose Level 106 mg/dL (70-99) Calcium Level 9.1 mg/dL (8.5-10.1) Total Bilirubin 0.5 mg/dL (0.2-1.0) Aspartate Amino Transf (AST/SGOT) 33 U/L (15-37) Alanine Aminotransferase (ALT/SGPT) 62 U/L (14-59) Alkaline Phosphatase 125 U/L (46-116) Troponin I Quantitative < 0.017 ng/mL (0.000-0.055) Total Protein 7.4 g/dL (6.4-8.2) Albumin 3.5 g/dL (3.4-5.0) Albumin/Globulin Ratio 0.9 (1.0-1.7) Erythrocyte Sedimentation Rate 25 (0-25) C-Reactive Protein, Quantitative 1.8 mg/L (0-3.3) Assessment and Plan Assessmemt and Plan Problems Medical Problems: (1) Left-sided weakness Status: Acute Comment Review of Relevant I have reviewed the following items camilo (where applicable) has been applied. Labs Laboratory Tests Test 06/19/18 14:20 06/20/18 07:05 White Blood Count 5.2 x10^3/uL (4.0-11.0) Red Blood Count 4.53 x10^6/uL (3.50-5.40) Hemoglobin 14.0 g/dL (12.0-15.5) Hematocrit 40.8 % (36.0-47.0) Mean Corpuscular Volume 90 fL (79-100) Mean Corpuscular Hemoglobin 31 pg (25-35) Mean Corpuscular Hemoglobin Concent 34 g/dL (31-37) Red Cell Distribution Width 12.5 % (11.5-14.5) Platelet Count 358 x10^3/uL (140-400) Neutrophils (%) (Auto) 52 % (31-73) Lymphocytes (%) (Auto) 41 % (24-48) Monocytes (%) (Auto) 6 % (0-9) Eosinophils (%) (Auto) 1 % (0-3) Basophils (%) (Auto) 1 % (0-3) Neutrophils # (Auto) 2.7 x10^3uL (1.8-7.7) Lymphocytes # (Auto) 2.1 x10^3/uL (1.0-4.8) Monocytes # (Auto) 0.3 x10^3/uL (0.0-1.1) Eosinophils # (Auto) 0.1 x10^3/uL (0.0-0.7) Basophils # (Auto) 0.0 x10^3/uL (0.0-0.2) Prothrombin Time 12.6 SEC (11.7-14.0) Prothromb Time International Ratio 1.0 (0.8-1.1) Sodium Level 144 mmol/L (136-145) Potassium Level 3.8 mmol/L (3.5-5.1) Chloride Level 106 mmol/L (98-107) Carbon Dioxide Level 27 mmol/L (21-32) Anion Gap 11 (6-14) Blood Urea Nitrogen 10 mg/dL (7-20) Creatinine 0.7 mg/dL (0.6-1.0) Estimated GFR (Cockcroft-Gault) 88.2 BUN/Creatinine Ratio 14 (6-20) Glucose Level 106 mg/dL (70-99) Calcium Level 9.1 mg/dL (8.5-10.1) Total Bilirubin 0.5 mg/dL (0.2-1.0) Aspartate Amino Transf (AST/SGOT) 33 U/L (15-37) Alanine Aminotransferase (ALT/SGPT) 62 U/L (14-59) Alkaline Phosphatase 125 U/L (46-116) Troponin I Quantitative < 0.017 ng/mL (0.000-0.055) Total Protein 7.4 g/dL (6.4-8.2) Albumin 3.5 g/dL (3.4-5.0) Albumin/Globulin Ratio 0.9 (1.0-1.7) Erythrocyte Sedimentation Rate 25 (0-25) C-Reactive Protein, Quantitative 1.8 mg/L (0-3.3) Laboratory Tests Test 06/19/18 14:20 06/20/18 07:05 White Blood Count 5.2 x10^3/uL (4.0-11.0) Red Blood Count 4.53 x10^6/uL (3.50-5.40) Hemoglobin 14.0 g/dL (12.0-15.5) Hematocrit 40.8 % (36.0-47.0) Mean Corpuscular Volume 90 fL (79-100) Mean Corpuscular Hemoglobin 31 pg (25-35) Mean Corpuscular Hemoglobin Concent 34 g/dL (31-37) Red Cell Distribution Width 12.5 % (11.5-14.5) Platelet Count 358 x10^3/uL (140-400) Neutrophils (%) (Auto) 52 % (31-73) Lymphocytes (%) (Auto) 41 % (24-48) Monocytes (%) (Auto) 6 % (0-9) Eosinophils (%) (Auto) 1 % (0-3) Basophils (%) (Auto) 1 % (0-3) Neutrophils # (Auto) 2.7 x10^3uL (1.8-7.7) Lymphocytes # (Auto) 2.1 x10^3/uL (1.0-4.8) Monocytes # (Auto) 0.3 x10^3/uL (0.0-1.1) Eosinophils # (Auto) 0.1 x10^3/uL (0.0-0.7) Basophils # (Auto) 0.0 x10^3/uL (0.0-0.2) Prothrombin Time 12.6 SEC (11.7-14.0) Prothromb Time International Ratio 1.0 (0.8-1.1) Sodium Level 144 mmol/L (136-145) Potassium Level 3.8 mmol/L (3.5-5.1) Chloride Level 106 mmol/L (98-107) Carbon Dioxide Level 27 mmol/L (21-32) Anion Gap 11 (6-14) Blood Urea Nitrogen 10 mg/dL (7-20) Creatinine 0.7 mg/dL (0.6-1.0) Estimated GFR (Cockcroft-Gault) 88.2 BUN/Creatinine Ratio 14 (6-20) Glucose Level 106 mg/dL (70-99) Calcium Level 9.1 mg/dL (8.5-10.1) Total Bilirubin 0.5 mg/dL (0.2-1.0) Aspartate Amino Transf (AST/SGOT) 33 U/L (15-37) Alanine Aminotransferase (ALT/SGPT) 62 U/L (14-59) Alkaline Phosphatase 125 U/L (46-116) Troponin I Quantitative < 0.017 ng/mL (0.000-0.055) Total Protein 7.4 g/dL (6.4-8.2) Albumin 3.5 g/dL (3.4-5.0) Albumin/Globulin Ratio 0.9 (1.0-1.7) Erythrocyte Sedimentation Rate 25 (0-25) C-Reactive Protein, Quantitative 1.8 mg/L (0-3.3) Medications Current Medications Ondansetron HCl (Zofran) 4 mg 1X ONCE IV Last administered on 06/19/18at 14:37 ; Start 06/19/18 at 14:30; Stop 06/19/18 at 14:31; Status DC Fentanyl Citrate (Fentanyl 2ml Vial) 50 mcg 1X ONCE IV Last administered on at 14:37; Start 06/19/18 at 14:30; Stop 06/19/18 at 14:31; Status DC Ondansetron HCl (Zofran) 4 mg PRN Q8HRS PRN IV NAUSEA/VOMITING Last administered on 06/19/18at 17:48; Start 06/19/18 at 16:45; Stop 06/20/18 at 16 :44 Fentanyl Citrate (Fentanyl 2ml Vial) 50 mcg PRN Q1HR PRN IV PAIN Last administered on 06/19/18at 17:48; Start 06/19/18 at 16:45; Stop 06/20/18 at 16 :44 Ketorolac Tromethamine (Toradol 15mg Vial) 15 mg PRN Q6HRS PRN IV PAIN Last administered on 06/19/18at 20:34; Start 06/19/18 at 19:30; Stop 06/24/18 at 19 :29 Prochlorperazine Edisylate (Compazine) 10 mg 1X ONCE IM ; Start 06/19/18 at 19 :30; Stop 06/19/18 at 19:31; Status DC Prochlorperazine Edisylate (Compazine) 10 mg 1X ONCE IV Last administered on 06/19/18at 21:00; Start 06/19/18 at 21:00; Stop 06/19/18 at 21:01; Status DC Prochlorperazine Edisylate (Compazine) 5 mg PRN Q6HRS PRN IV NAUSEA/VOMITING; Start 06/19/18 at 21:45 Ketorolac Tromethamine (Toradol 30mg Vial) 30 mg PRN Q6HRS PRN IV PAIN; Start 06/19/18 at 21:45; Stop 06/24/18 at 21:44 Senna/Docusate Sodium (Senna Plus) 1 tab BID PO Last administered on at 08:45; Start 06/20/18 at 09:00 Heparin Sodium (Porcine) (Heparin Sodium) 5,000 unit Q12HR SQ Last administered on 06/20/18at 08:45; Start 06/20/18 at 09:00 Alprazolam (Xanax) 0.5 mg HS PO Last administered on 06/19/18at 22:04; Start 06/19/18 at 22:00 Aspirin (Children'S Aspirin) 81 mg DAILY PO Last administered on 06/20/18at 08: 44; Start 06/20/18 at 09:00 Atorvastatin Calcium (Lipitor) 20 mg HS PO ; Start 06/20/18 at 21:00 Fenofibrate (Lofibra) 54 mg DAILY PO Last administered on 06/20/18at 08:44; Start 06/20/18 at 09:00 Gadobutrol (Gadavist) 7.5 mmol 1X ONCE IV Last administered on 06/20/18at 10: 32; Start 06/20/18 at 10:30; Stop 06/20/18 at 10:31; Status DC Active Scripts Active Fenofibrate 54 Mg Tablet 54 Mg PO DAILY 30 Days Reported Vitamin D (Cholecalciferol (Vitamin D3)) 50,000 Unit Capsule 50,000 Unit PO WEEKLY Atorvastatin Calcium 20 Mg Tablet 1 Tab PO DAILY Aspirin 81 Mg Tab.chew 1 Tab PO DAILY Alprazolam 0.5 Mg Tablet 1 Tab PO HS Vitals/I & O Vital Sign - Last 24 Hours 06/19/18 06/19/18 06/19/18 06/19/18 13:45 14:15 14:20 15:00 Temp 98.4 98.4 Pulse 63 63 67 65 Resp 14 16 18 14 B/P (MAP) 123/62 (82) Pulse Ox 94 96 96 95 O2 Delivery Room Air 06/19/18 06/19/18 06/19/18 06/19/18 15:30 16:00 17:00 17:48 Temp 97.8 97.8 Pulse 64 60 61 Resp 20 16 16 B/P (MAP) 128/69 (88) Pulse Ox 99 97 96 O2 Delivery Room Air Room Air 06/19/18 06/19/18 06/19/18 06/20/18 19:00 20:00 23:00 03:00 Temp 97.7 97.9 97.7 97.7 97.9 97.7 Pulse 61 58 59 Resp 18 18 18 B/P (MAP) 126/55 (78) 110/42 (64) 101/46 (64) Pulse Ox 97 98 96 O2 Delivery Room Air Room Air Room Air Room Air 06/20/18 06/20/18 07:00 08:00 Temp 97.5 97.5 Pulse 60 Resp 18 B/P (MAP) 114/52 (72) Pulse Ox 94 O2 Delivery Room Air Room Air Intake and Output 06/19/18 06/19/18 06/20/18 15:00 23:00 07:00 Intake Total 180 ml Balance 180 ml NOLVIA GAMBOA MD Jun 20, 2018 12:39
[2018-06-20 12:42] LABS: BARBITURATES NEG (NEG); BENZODIAZEPINES NEG (NEG); CANNABINOIDS NEG (NEG); COCAINE NEG (NEG); METHADONE NEG (NEG); OPIATES NEG (NEG); PHENCYCLIDINE NEG (NEG)
[2018-06-20 12:45] LABS: AMPHETAMINE/METHAMPHETAMINE NEG (NEG)
[2018-06-20] MEDS ORDERED: ONDANSETRON PF 4 MG/2 ML VIAL. IV PRN (12:45)
[2018-06-20] MEDS ORDERED: DOCUSATE SODIUM 100 MG CAPSULE. PO PRN (12:45)
[2018-06-20] MEDS ORDERED: ACETAMINOPHEN 325 MG TABLET. PO PRN (12:45)
[2018-06-20] MEDS ORDERED: MORPHINE SULFATE 2 MG/ML VIAL. IV PRN (12:45)
[2018-06-20] MEDS ORDERED: traMADol 50 MG TABLET PO PRN (12:45)
[2018-06-20 15:00] VITALS: BP 111/51
--- NOTE | 2018-06-20 18:49 | PDOC2 ---
NEUROLOGY CONSULT Date of Admission Date of Admission DATE: 06/20/18 TIME: 18:37 Reason for Consult Reason for Consult: IMPRESSION: Left LE weakness x 4 days before admission. Subjective abnormal sensation in head. HLD. Obesity. 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 Migraine headache Hx. No evidence of acute CVA this time. RECOMMENDATIONS/PLAN: Continue ASA 81 mg daily. L-spine MRI w/o contrast, [place]. OT/PT. Discussed with her at bedside on 06/20/18. HISTORY OF THE PRESENT ILLNESS: 53-y-old [place] origin female patient was admitted with complaints of left LE weakness for about 4 days. She stated she had tingling sensory in her left LE sometimes in the past and weakness in the past 4 days before admission, but she is still mobile. She also stated that she had sensations of head ischemia. No obvious symptoms of numbness or pain. No urinary or bowel dysfunction. Past Medical History Cardiovascular: HTN, Hyperlipidemia Pulmonary: No pertinent hx CENTRAL NERVOUS SYSTEM: Other GI: Other Heme/Onc: No pertinent hx Hepatobiliary: No pertinent hx Psych: Anxiety Rheumatologic: No pertinent hx Infectious disease: No pertinent hx Renal/: No pertinent hx Endocrine: No pertinent hx Past Surgical History Tonsillectomy Family History Diabetes, Hypertension ALLERGY: Reviewed. MEDICATIONS: Refer to MAR SOCIAL HISTORY: Lives with her at home. Denies smoking, drinking, and illicit drug use. REVIEW OF SYSTEMS: Constitutional: Obesity. Head: No recent traumatic brain or head injury. Skin: No edema, or rash. Ear: No infection. Eyes: No vision loss or color blindness. Nose: No bleeding or purulent discharges. Hearing: No hearing decrease. Neck: No injury. Breast: No history of cancer, masses,or discharges. Cardiac: HLD. Pulmonary: No pneumonia, COPD. GI: No GI ulcer, GI bleeding. Urinary/genital: UTI. Endocrinologic: Obesity. Skeletomuscular: No muscular atrophy, deformity. Neurological: see HP. Psychiatric: Denies drug use/abuse. Otherwise, not [id number] review of systems. PHYSICAL EXAMINATION: General appearance is in no acute distress. HEENT: Normocephalic and nontraumatic. Eyes, nose, ears, and throat are unremarkable. Neck is supple. No lymphadenopathy. No bruits are heard over the carotid artery. No crepitus. Cardiovascular: S1, S2, regular rate and rhythm. Pulmonary: Clear to auscultation bilaterally. Abdomen: Bowel sounds are positive. Abdomen is soft, nontender, and nondistended. Extremities: No rash, lesions, or edema. No restriction of range of motion NEUROLOGICAL EXAMINATION: Alert Oriented to time, place and person. PERRL. EOMI. CN: no focal findings. Muscle tone: within normal. Muscle strength: 5- left LE? 5 the rest. DTR: 2 Plantar reflex: Flexor response bilaterally Gait: not examined in bed. Sensory exam: no abnormal findings. No cerebellar signs elicited. F-T-N test accurate. Current Medications Current Medications Current Medications Ondansetron HCl (Zofran) 4 mg 1X ONCE IV Last administered on 06/19/18at 14:37 ; Start 06/19/18 at 14:30; Stop 06/19/18 at 14:31; Status DC Fentanyl Citrate (Fentanyl 2ml Vial) 50 mcg 1X ONCE IV Last administered on at 14:37; Start 06/19/18 at 14:30; Stop 06/19/18 at 14:31; Status DC Ondansetron HCl (Zofran) 4 mg PRN Q8HRS PRN IV NAUSEA/VOMITING Last administered on 06/19/18at 17:48; Start 06/19/18 at 16:45; Stop 06/20/18 at 16 :44; Status DC Fentanyl Citrate (Fentanyl 2ml Vial) 50 mcg PRN Q1HR PRN IV PAIN Last administered on 06/19/18at 17:48; Start 06/19/18 at 16:45; Stop 06/20/18 at 16 :44; Status DC Ketorolac Tromethamine (Toradol 15mg Vial) 15 mg PRN Q6HRS PRN IV PAIN Last administered on 06/19/18at 20:34; Start 06/19/18 at 19:30; Stop 06/20/18 at 17 :40; Status DC Prochlorperazine Edisylate (Compazine) 10 mg 1X ONCE IM ; Start 06/19/18 at 19 :30; Stop 06/19/18 at 19:31; Status DC Prochlorperazine Edisylate (Compazine) 10 mg 1X ONCE IV Last administered on 06/19/18at 21:00; Start 06/19/18 at 21:00; Stop 06/19/18 at 21:01; Status DC Prochlorperazine Edisylate (Compazine) 5 mg PRN Q6HRS PRN IV NAUSEA/VOMITING, 2nd CHOICE; Start 06/19/18 at 21:45 Ketorolac Tromethamine (Toradol 30mg Vial) 30 mg PRN Q6HRS PRN IV INFLAMMATION PAIN; Start 06/19/18 at 21:45; Stop 06/24/18 at 21:44 Senna/Docusate Sodium (Senna Plus) 1 tab BID PO Last administered on at 08:45; Start 06/20/18 at 09:00 Heparin Sodium (Porcine) (Heparin Sodium) 5,000 unit Q12HR SQ Last administered on 06/20/18at 08:45; Start 06/20/18 at 09:00 Alprazolam (Xanax) 0.5 mg HS PO Last administered on 06/19/18at 22:04; Start 06/19/18 at 22:00 Aspirin (Children'S Aspirin) 81 mg DAILY PO Last administered on 06/20/18at 08: 44; Start 06/20/18 at 09:00 Atorvastatin Calcium (Lipitor) 20 mg HS PO ; Start 06/20/18 at 21:00 Fenofibrate (Lofibra) 54 mg DAILY PO Last administered on 06/20/18at 08:44; Start 06/20/18 at 09:00 Gadobutrol (Gadavist) 7.5 mmol 1X ONCE IV Last administered on 06/20/18at 10: 32; Start 06/20/18 at 10:30; Stop 06/20/18 at 10:31; Status DC Acetaminophen (Tylenol) 650 mg PRN Q6HRS PRN PO FEVER; Start 06/20/18 at 12:45 Ondansetron HCl (Zofran) 4 mg PRN Q6HRS PRN IV NAUSEA/VOMITING, 1st CHOICE; Start 06/20/18 at 12:45 Morphine Sulfate (Morphine Sulfate) 2 mg PRN Q2HR PRN IV MODERATE TO SEVERE PAIN; Start 06/20/18 at 12:45 Tramadol HCl (Ultram) 50 mg PRN Q6HRS PRN PO MILD TO MODERATE PAIN; Start at 12:45 Docusate Sodium (Colace) 100 mg PRN DAILY PRN PO CONSTIPATION; Start 06/20/18 at 12:45 Active Scripts Active Fenofibrate 54 Mg Tablet 54 Mg PO DAILY 30 Days Reported Vitamin D (Cholecalciferol (Vitamin D3)) 50,000 Unit Capsule 50,000 Unit PO WEEKLY Atorvastatin Calcium 20 Mg Tablet 1 Tab PO DAILY Aspirin 81 Mg Tab.chew 1 Tab PO DAILY Alprazolam 0.5 Mg Tablet 1 Tab PO HS Allergies Allergies: Allergies Coded Allergies Type Severity Reaction Last Updated Verified azithromycin Allergy Intermediate 04/12/15 No niacin Allergy Intermediate burning sensation 04/12/15 Yes ROS Review of System The patient denies any associated fevers, chills, headache, ear pain, rhinorrhea , sore throat, stiff neck, productive cough, chest pain, shortness of breath, back or flank pain, abdominal pain, nausea, vomiting, diarrhea, constipation, dysuria, rash, numbness, weakness, tingling, incontinence, difficulty ambulating, or diaphoresis. Physical Exam Physical Exam General: Well developed, well nourished, no acute distress, well appearing HEENT: Pupils equally round and reactive to light, EOMI, no discharge, normal conjunctiva Neck: Supple, no nuchal rigidity, no JVD, trachea midline, no tenderness Cardiac: RRR, no murmurs, no gallops, no rubs Chest/Lungs: CTAB, no wheeze, no rhonchi, no crackles Abdomen: soft, non-distended, no guarding, no peritoneal signs, non-tender Back: No tenderness Extremities: no edema, pulses intact, non-tender,capillary refill <3 sec bilateral upper and lower extremities, Neuro: Alert and oriented x 4, no focal deficits, normal speech Vitals Vitals: Vital Signs Date Time Temp Pulse Resp B/P (MAP) Pulse Ox O2 Delivery O2 Flow Rate FiO2 06/20/18 15:00 98.4 61 18 111/51 (71) 99 Room Air 98.4 Labs Labs Laboratory Tests Test 06/19/18 14:20 06/20/18 07:05 06/20/18 12:30 White Blood Count 5.2 x10^3/uL (4.0-11.0) Red Blood Count 4.53 x10^6/uL (3.50-5.40) Hemoglobin 14.0 g/dL (12.0-15.5) Hematocrit 40.8 % (36.0-47.0) Mean Corpuscular Volume 90 fL (79-100) Mean Corpuscular Hemoglobin 31 pg (25-35) Mean Corpuscular Hemoglobin Concent 34 g/dL (31-37) Red Cell Distribution Width 12.5 % (11.5-14.5) Platelet Count 358 x10^3/uL (140-400) Neutrophils (%) (Auto) 52 % (31-73) Lymphocytes (%) (Auto) 41 % (24-48) Monocytes (%) (Auto) 6 % (0-9) Eosinophils (%) (Auto) 1 % (0-3) Basophils (%) (Auto) 1 % (0-3) Neutrophils # (Auto) 2.7 x10^3uL (1.8-7.7) Lymphocytes # (Auto) 2.1 x10^3/uL (1.0-4.8) Monocytes # (Auto) 0.3 x10^3/uL (0.0-1.1) Eosinophils # (Auto) 0.1 x10^3/uL (0.0-0.7) Basophils # (Auto) 0.0 x10^3/uL (0.0-0.2) Prothrombin Time 12.6 SEC (11.7-14.0) Prothromb Time International Ratio 1.0 (0.8-1.1) Sodium Level 144 mmol/L (136-145) Potassium Level 3.8 mmol/L (3.5-5.1) Chloride Level 106 mmol/L (98-107) Carbon Dioxide Level 27 mmol/L (21-32) Anion Gap 11 (6-14) Blood Urea Nitrogen 10 mg/dL (7-20) Creatinine 0.7 mg/dL (0.6-1.0) Estimated GFR (Cockcroft-Gault) 88.2 BUN/Creatinine Ratio 14 (6-20) Glucose Level 106 mg/dL (70-99) Calcium Level 9.1 mg/dL (8.5-10.1) Total Bilirubin 0.5 mg/dL (0.2-1.0) Aspartate Amino Transf (AST/SGOT) 33 U/L (15-37) Alanine Aminotransferase (ALT/SGPT) 62 U/L (14-59) Alkaline Phosphatase 125 U/L (46-116) Troponin I Quantitative < 0.017 ng/mL (0.000-0.055) Total Protein 7.4 g/dL (6.4-8.2) Albumin 3.5 g/dL (3.4-5.0) Albumin/Globulin Ratio 0.9 (1.0-1.7) Erythrocyte Sedimentation Rate 25 (0-25) C-Reactive Protein, Quantitative 1.8 mg/L (0-3.3) Urine Opiates Screen Neg (NEG) Urine Methadone Screen Neg (NEG) Urine Barbiturates Neg (NEG) Urine Phencyclidine Screen Neg (NEG) Urine Amphetamine/Methamphetamine Neg (NEG) Urine Benzodiazepines Screen Neg (NEG) Urine Cocaine Screen Neg (NEG) Urine Cannabinoids Screen Neg (NEG) Urine Ethyl Alcohol Neg (NEG) Laboratory Tests Test 06/20/18 07:05 06/20/18 12:30 Erythrocyte Sedimentation Rate 25 (0-25) C-Reactive Protein, Quantitative 1.8 mg/L (0-3.3) Urine Opiates Screen Neg (NEG) Urine Methadone Screen Neg (NEG) Urine Barbiturates Neg (NEG) Urine Phencyclidine Screen Neg (NEG) Urine Amphetamine/Methamphetamine Neg (NEG) Urine Benzodiazepines Screen Neg (NEG) Urine Cocaine Screen Neg (NEG) Urine Cannabinoids Screen Neg (NEG) Urine Ethyl Alcohol Neg (NEG) JULIAN ELIAS MD Jun 20, 2018 18:49
[2018-06-20 19:00] VITALS: BP 119/63
[2018-06-20] MEDS ORDERED: ATORVASTATIN CALCIUM 20 MG TABLET PO SCH (21:00)
[2018-06-20] MEDS: ALPRAZolam 0.5 MG TABLET PO SCH (21:07)
[2018-06-20 23:04] VITALS: BP 117/47
[2018-06-21 03:09] VITALS: BP 128/88
[2018-06-21 04:32] LABS: BASO % 1 % (0-3); EOS # 0.1 x10^3/uL (0.0-0.7); EOS % 2 % (0-3); HEMATOCRIT 39.3 % (36.0-47.0); HEMOGLOBIN 13.6 g/dL (12.0-15.5); LYMPH % 51 % (24-48); MEAN CORPUSCULAR HEMOGLOBIN 32 pg (25-35); MEAN CORPUSCULAR HGB CONC 35 g/dL (31-37); MEAN CORPUSCULAR VOLUME 91 fL (79-100); MONO # 0.3 x10^3/uL (0.0-1.1); MONO % 6 % (0-9); NEUT # 2.5 x10^3uL (1.8-7.7); NEUT % 42 % (31-73); PLATELET COUNT 328 x10^3/uL (140-400); RED CELL DISTRIBUTION WIDTH 12.7 % (11.5-14.5); WHITE BLOOD COUNT 5.9 x10^3/uL (4.0-11.0)
[2018-06-21 05:02] LABS: CREATININE 0.7 mg/dL (0.6-1.0); GFR 88.2; POTASSIUM 3.8 mmol/L (3.5-5.1)
[2018-06-21 07:00] VITALS: BP 114/50
[2018-06-21] MEDS: SENNOSIDES/DOCUSATE 8.6/50MG TABLET. PO SCH (09:10)
[2018-06-21] MEDS: FENOFIBRATE 54 MG TABLET. PO SCH (09:10)
[2018-06-21] MEDS: ASPIRIN CHEWABLE 81 MG TABLET. PO SCH (09:10)
--- NOTE | 2018-06-21 09:10 | RAD ---
MRI Lumbar Spine without contrast History: Left leg weakness for 5 days Technique: Multiplanar, multi sequential noncontrast MR imaging was performed of the lumbar spine. Contrast: None Comparison: None Findings: Lumbar vertebral body stature and AP alignment are maintained. There is [id number] degenerative disc disease L5-S1. Conus terminates at T12. There is mild L5-S1 endplate edema likely reactive/degenerative in etiology. There is a hemangioma of the left L3 vertebral body, likely focus also of the left L2 vertebral body L3-L4: Neural foramina and spinal canal are adequate. L4-L5: Neural foramina and spinal canal are adequate. There is mild buckling of the ligamentum flavum. L5-S1: There is a broad posterior protrusion/contained extrusion about 0.9 cm AP by 1 cm CC by 2.3 cm transverse. There is moderate narrowing of the far lateral recesses bilaterally with contact of the descending S1 nerve roots bilaterally, near the descending left S2 nerve root without displacement. Central canal is not significantly narrowed. There is very mild narrowing of the inferior left neural foramen, right neural foramen adequate. Impression: 1. There is a broad protrusion/contained extrusion at L5-S1, narrowing of the far lateral recesses bilaterally with contact of the descending S1 nerve roots, near descending left S2 nerve root without displacement. There is mild to moderate degenerative disc disease at L5-S1. Electronically signed by: Anthony Wheeler MD (06/21/2018 9:07 AM) [email or web address]
[2018-06-21] MEDS: HEPARIN for SUB-Q USE 5,000 UNIT/ML VIAL. SQ SCH (09:11)
[2018-06-21 11:00] VITALS: BP 128/75
[2018-06-21] MEDS ORDERED: IBUP-1227 PO (13:30)
[2018-06-21] MEDS ORDERED: CHOL500050 PO (13:30)
[2018-06-21] MEDS ORDERED: IBUPROFEN 200 MG TABLET. PO SCH (14:00)
--- NOTE | 2018-06-21 14:18 | RAD ---
MRI Cervical Spine Without Contrast History:Neck pain,headaches, tingling in hands Technique: Multiplanar, multi sequential noncontrast MR imaging was performed of the cervical spine. Comparison: None Findings: Cervical cord caliber is within normal limits without focal signal abnormality. There is no significant marrow edema. Cervical vertebral body stature is maintained. There is mild reversal of the lordotic curvature centered at C5. There is negligible anterior spondylolisthesis C2-3, C3-4, C4-C5. Intervertebral disc spaces are relatively preserved. There is no significant abnormality of the cervical medullary junction. C2-C3: Spinal canal and neural foramina are adequate. C3-C4: Neural foramina and spinal canal are adequate. C4-C5: Spinal canal and neural foramina are adequate. There is mild facet degenerative change on the right. C5-C6: Neural foramina and spinal canal are adequate. C6-C7: Neural foramina and spinal canal are adequate. C7-T1: Spinal canal and neural foramina are adequate. Impression: 1. There is no cervical spinal stenosis or neural foramina compromise. There is negligible anterior spondylolisthesis at C2-3, C3-4, C4-5 and also mild nonspecific reversal of the lordotic curvature. Electronically signed by: Anthony Wheeler MD (06/21/2018 2:14 PM) [email or web address]
[2018-06-21] MEDS ORDERED: ERGOCALCIFEROL (VITAMIN D2) 50,000 UNIT CAPSULE. PO SCH (15:00)
--- NOTE | 2018-06-21 15:04 | PDOC3 ---
Discharge Summary [facility] Date of Admission: Jun 19, 2018 Discharge Date: Jun 21, 2018 Admitting Diagnosis Left leg mild weakness, 2/2 l5-s1 protrusion? 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 tension headache Diarrhea - resolving, likely was travelers diarrhea , resolved. HLD Anxiety - prn xanax broad protrusion/contained extrusion at L5-S1 wo central canal compression bl hands and feet numbness, peripheral neuropathy possibly Final Diagnosis CONSULTS neuro lucia Brief Hospital Course Ms. Taveras is a 53 old F, with anxiety, comes for left leg weakness. She said has been for 5ds, and almost gave out 2 times at home. when i saw her on 2nd day, PE very mild left leg weakness, 4/5 compared to rt side 5/5. She also c/o rt side headache, better with pain meds. no vision change. ALSo has bl hands and feet numbness. vit d low, vitb12 normal. MRI brain neg. MRI lumbar showed broad protrusion/contained extrusion at L5-S1 wo central canal compression. pt now has no leg weakness today, neurosx is not in house till next week. MRI neck no spinal stenosis. pt insisted to go home today. asked her to fu with neuro if cont numbness. i talked to neuro. dc home. dc time 35min. ow still feels mild left leg weakness. exam 5/5 , right leg 5/5. bl hands 5/5. left facial droop. sensation symmetric. General: Alert, Oriented X3, Cooperative, No acute distress Abdomen: Normal bowel sounds, Soft, No tenderness, No hepatosplenomegaly, No masses Extremities: No clubbing, No cyanosis, No edema, Normal pulses, No tenderness/ swelling Skin: No rashes, No breakdown, No significant lesion Disposition home CONDITION AT DISCHARGE: Improved Scheduled Alprazolam (Alprazolam), 1 TAB PO HS, (Reported) Aspirin (Aspirin), 1 TAB PO DAILY, (Reported) Atorvastatin Calcium (Atorvastatin Calcium), 1 TAB PO DAILY, (Reported) Cholecalciferol (Vitamin D3) (Vitamin D), 50,000 UNIT PO WEEKLY Fenofibrate (Fenofibrate), 54 MG PO DAILY Ibuprofen (Ibuprofen), 600 MG PO TID NOLVIA GAMBOA MD Jun 21, 2018 15:04
--- NOTE | 2018-06-21 17:22 | PDOC ---
PROGRESS NOTES Assessment Assessment Left LE weakness x 4 days before admission. Left S2 radiculopathy, mild. L5-S1 disc protrusion. Subjective abnormal sensation in head. Numbness in hands, intermittent. HLD. Obesity. 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 Migraine headache Hx. No evidence of acute CVA this time. RECOMMENDATIONS/PLAN: Patient declined Neurosurgery consultation and surgical intervention. Consult Dr Howard, Physical Medicine. Neurontin 100 mg tid. FU with PCP. FU with Neurology as needed. Discussed with her at bedside on 06/21/18. HISTORY OF THE PRESENT ILLNESS: 53-y-old [place] origin female patient was admitted with complaints of left LE weakness for about 4 days. She stated she had tingling sensory in her left LE sometimes in the past and weakness in the past 4 days before admission, but she is still mobile. She also stated that she had sensations of head ischemia. No obvious symptoms of numbness or pain. No urinary or bowel dysfunction. Past Medical History Cardiovascular: HTN, Hyperlipidemia Pulmonary: No pertinent hx CENTRAL NERVOUS SYSTEM: Other GI: Other Heme/Onc: No pertinent hx Hepatobiliary: No pertinent hx Psych: Anxiety Rheumatologic: No pertinent hx Infectious disease: No pertinent hx Renal/: No pertinent hx Endocrine: No pertinent hx Past Surgical History Tonsillectomy Family History Diabetes, Hypertension ALLERGY: Reviewed. MEDICATIONS: Refer to MAR SOCIAL HISTORY: Lives with her at home. Denies smoking, drinking, and illicit drug use. REVIEW OF SYSTEMS: Constitutional: Obesity. Head: No recent traumatic brain or head injury. Skin: No edema, or rash. Ear: No infection. Eyes: No vision loss or color blindness. Nose: No bleeding or purulent discharges. Hearing: No hearing decrease. Neck: No injury. Breast: No history of cancer, masses,or discharges. Cardiac: HLD. Pulmonary: No pneumonia, COPD. GI: No GI ulcer, GI bleeding. Urinary/genital: UTI. Endocrinologic: Obesity. Skeletomuscular: No muscular atrophy, deformity. Neurological: see HP. Psychiatric: Denies drug use/abuse. Otherwise, not [id number] review of systems. PHYSICAL EXAMINATION: General appearance is in no acute distress. HEENT: Normocephalic and nontraumatic. Eyes, nose, ears, and throat are unremarkable. Neck is supple. No lymphadenopathy. No bruits are heard over the carotid artery. No crepitus. Cardiovascular: S1, S2, regular rate and rhythm. Pulmonary: Clear to auscultation bilaterally. Abdomen: Bowel sounds are positive. Abdomen is soft, nontender, and nondistended. Extremities: No rash, lesions, or edema. No restriction of range of motion NEUROLOGICAL EXAMINATION: Alert Oriented to time, place and person. PERRL. EOMI. CN: no focal findings. Muscle tone: within normal. Muscle strength: 5- left LE, 5 the rest. DTR: 2 Plantar reflex: Flexor response bilaterally Gait: at her baseline normal. Sensory exam: no abnormal findings. No cerebellar signs elicited. F-T-N test accurate. Objective Objective Vital Signs Date Time Temp Pulse Resp B/P (MAP) Pulse Ox O2 Delivery O2 Flow Rate FiO2 06/21/18 11:00 97.5 71 16 128/75 (92) 100 Room Air 97.5 Intake and Output 06/21/18 07:00 Intake Total 1320 ml Output Total 200 ml Balance 1120 ml Intake Oral 1320 ml Output Urine Total 200 ml # Voids 2 Vitals Signs Vitals VS - Last 72 Hours, by Label Date Time Temp Pulse Resp B/P (MAP) Pulse Ox O2 Delivery O2 Flow Rate FiO2 06/21/18 11:00 97.5 71 16 128/75 (92) 100 Room Air 97.5 06/21/18 08:00 Room Air 06/21/18 07:00 98.6 58 16 114/50 (71) 98 Room Air 98.6 06/21/18 03:09 98.6 67 20 128/88 (101) 99 Room Air 98.6 06/20/18 23:04 98.1 65 20 117/47 (70) 94 Room Air 98.1 06/20/18 20:00 Room Air 06/20/18 19:00 97.9 64 20 119/63 (81) 96 Room Air 97.9 06/20/18 15:00 98.4 61 18 111/51 (71) 99 Room Air 98.4 06/20/18 11:00 97.7 65 18 127/49 (75) 95 Room Air 97.7 06/20/18 08:00 Room Air 06/20/18 07:00 97.5 60 18 114/52 (72) 94 Room Air 97.5 Laboratory Laboratory Laboratory Tests Test 06/21/18 03:10 White Blood Count 5.9 x10^3/uL (4.0-11.0) Red Blood Count 4.30 x10^6/uL (3.50-5.40) Hemoglobin 13.6 g/dL (12.0-15.5) Hematocrit 39.3 % (36.0-47.0) Mean Corpuscular Volume 91 fL (79-100) Mean Corpuscular Hemoglobin 32 pg (25-35) Mean Corpuscular Hemoglobin Concent 35 g/dL (31-37) Red Cell Distribution Width 12.7 % (11.5-14.5) Platelet Count 328 x10^3/uL (140-400) Neutrophils (%) (Auto) 42 % (31-73) Lymphocytes (%) (Auto) 51 % (24-48) Monocytes (%) (Auto) 6 % (0-9) Eosinophils (%) (Auto) 2 % (0-3) Basophils (%) (Auto) 1 % (0-3) Neutrophils # (Auto) 2.5 x10^3uL (1.8-7.7) Lymphocytes # (Auto) 3.0 x10^3/uL (1.0-4.8) Monocytes # (Auto) 0.3 x10^3/uL (0.0-1.1) Eosinophils # (Auto) 0.1 x10^3/uL (0.0-0.7) Basophils # (Auto) 0.0 x10^3/uL (0.0-0.2) Sodium Level 145 mmol/L (136-145) Potassium Level 3.8 mmol/L (3.5-5.1) Chloride Level 107 mmol/L (98-107) Carbon Dioxide Level 28 mmol/L (21-32) Anion Gap 10 (6-14) Blood Urea Nitrogen 13 mg/dL (7-20) Creatinine 0.7 mg/dL (0.6-1.0) Estimated GFR (Cockcroft-Gault) 88.2 Glucose Level 110 mg/dL (70-99) Calcium Level 9.0 mg/dL (8.5-10.1) Vitamin B12 Level 1626 pg/mL (247-911) 25-Hydroxy Vitamin D Total 16.9 ng/mL (30-100) Thyroid Stimulating Hormone (TSH) 3.388 uIU/mL (0.358-3.74) Medication Medications Current Medications Atorvastatin Calcium (Lipitor) 20 mg HS PO Last administered on 06/20/18at 21: 07; Start 06/20/18 at 21:00; Stop 06/21/18 at 15:42; Status DC Ergocalciferol (Vitamin D2) 50,000 unit WEEKLY PO Last administered on at 15:02; Start 06/21/18 at 15:00; Stop 06/21/18 at 15:42; Status DC Ibuprofen (Motrin) 600 mg TID PO Last administered on 06/21/18at 15:04; Start 06/21/18 at 14:00; Stop 06/21/18 at 15:42; Status DC Comment Review of Relevant I have reviewed the following items camilo (where applicable) has been applied. JULIAN ELIAS MD Jun 21, 2018 17:22
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
== END 2018-06-21 15:42 | disposition home or self-care (01) | DRG 74 ==
LOC: ER 13:11 → EEVIPCON 15:30 → 5 NORTH 15:30
PROVIDERS: ADMIT Internal Medicine; ATTEND Internal Medicine
DX: G62.9 Polyneuropathy, unspecified (principal); G43.909 Migraine, unspecified, not intractable, without status migrainosus; M51.27 Other intervertebral disc displacement, lumbosacral region; G44.209 Tension-type headache, unspecified, not intractable; E78.00 Pure hypercholesterolemia, unspecified; F41.9 Anxiety disorder, unspecified; E78.1 Pure hyperglyceridemia; E78.5 Hyperlipidemia, unspecified; G51.0 Bell's palsy; I10 Essential (primary) hypertension; E66.9 Obesity, unspecified; G89.29 Other chronic pain; M51.16 Intervertebral disc disorders with radiculopathy, lumbar region; M47.812 Spondylosis without myelopathy or radiculopathy, cervical region; R19.7 Diarrhea, unspecified; Z88.1 Allergy status to other antibiotic agents; Z88.8 Allergy status to other drugs, medicaments and biological substances; Z82.49 Family history of ischemic heart disease and other diseases of the circulatory system; Z83.3 Family history of diabetes mellitus; Z79.899 Other long term (current) drug therapy; Z68.29 Body mass index [BMI] 29.0-29.9, adult; Z79.82 Long term (current) use of aspirin
CPT/HCPCS: 36415; 70450; 70553; 71046; 72141; 72148; 80048; 80053; 80307; 82306; 82550; 82607; 84443; 84484; 85025; 85610; 85651; 86140; 93005; 96374; 96375; A9585; J0780; J1644; J1885; J2405; J3010; 99285-25; G0479

== ENCOUNTER 2019-06-15 08:26 | Emergency (ER) | payer BC, OTHER ==
[~2019-06-15] VITALS: Ht 165.1 cm; Wt 81.6 kg
[~2019-06-15 08:26] MED LIST changes: +CHOL500050 PO; -HYDR-2758 PO; +HYDR-2761 PO; +IBUP-1670 PO; +KETO200T3 PO; -[UNRECOGNIZED DRUG - CODE] PO
[2019-06-15 08:46] VITALS: BP 127/75
--- NOTE | 2019-06-15 08:54 | PHYS DOC ---
Past Medical History Past Medical History: Anxiety, High Cholesterol, Migraines, Other Additional Past Medical Histor: bells palsy, HIGH TRIGLYCERIDE Past Surgical History: Tonsillectomy, Other Additional Past Surgical Histo: bilat breast reduction Alcohol Use: None Drug Use: None Adult General Chief Complaint Chief Complaint: ABDOMINAL PAIN HPI HPI 54-year-old female presents to the emergency department with complaints of suprapubic, right lower quadrant, right flank pain. Patient states the pain is been ongoing for a couple of months. She states worse last evening. She is well described urinary incontinence. Patient denies any nausea, vomiting, vaginal discharge, vaginal bleeding, headache or visual changes. Nothing makes the pain worse, nothing makes the pain better. She states she's tried Tylenol as well as ibuprofen. She was scheduled for what sounds like an ultrasound however was unable to make that appointment as she was out of town. Review of Systems Review of Systems Constitutional: Denies fever or chills [] Respiratory: Denies cough or shortness of breath [] Cardiovascular: No additional information not addressed in HPI [] GI: + abdominal pain, no nausea, vomiting, bloody stools or diarrhea [] : Denies dysuria or hematuria [] Musculoskeletal: Right flank pain Integument: Denies rash or skin lesions [] Neurologic: Denies headache, focal weakness or sensory changes [] All other systems were reviewed and found to be within normal limits, except as documented in this note. Current Medications Current Medications Current Medications Medications (Trade) Dose Ordered Sig/Matias Start Time Stop Time Status Last Admin Dose Admin Info (CONTRAST GIVEN -- Rx MONITORING) 1 each PRN DAILY PRN 06/15/19 09:15 06/17/19 09:14 Iohexol (Omnipaque 300 Mg/ml) 75 ml 1X ONCE 06/15/19 09:30 06/15/19 09:31 DC 06/15/19 09:38 75 ML Morphine Sulfate (Morphine Sulfate) 2 mg 1X ONCE 06/15/19 09:00 06/15/19 09:01 DC 06/15/19 09:03 2 MG Ondansetron HCl (Zofran) 4 mg 1X ONCE 06/15/19 09:00 06/15/19 09:01 DC 06/15/19 09:02 4 MG Allergies Allergies Allergies Coded Allergies Type Severity Reaction Last Updated Verified azithromycin Allergy Intermediate 04/12/15 No niacin Allergy Intermediate burning sensation 8/10/15 Yes Physical Exam Physical Exam Constitutional: Well developed, well nourished, no acute distress, non-toxic appearance. [] HENT: Normocephalic, atraumatic, bilateral external ears normal, oropharynx moist, no oral exudates, nose normal. [] Eyes: PERRLA, EOMI, conjunctiva normal, no discharge. [] Cardiovascular:Heart rate regular rhythm, no murmur [] Lungs & Thorax: Bilateral breath sounds clear to auscultation [] Abdomen: Bowel sounds normal, soft, no tenderness, no masses, no pulsatile mass es. [] Skin: Warm, dry, no erythema, no rash. [] Back: No tenderness, no CVA tenderness. [] Extremities: No tenderness, no cyanosis, no edema. [] Neurologic: Alert and oriented X 3, no focal deficits noted. [] Psychologic: Affect normal, judgement normal, mood normal. [] Current Patient Data Vital Signs Vital Signs Date Time Temp Pulse Resp B/P (MAP) Pulse Ox O2 Delivery O2 Flow Rate FiO2 06/15/19 09:03 18 06/15/19 08:46 97.4 69 127/75 (92) 98 Room Air 97.4 Lab Values Laboratory Tests Test 06/15/19 08:34 06/15/19 08:53 Urine Collection Type Unknown Urine Color Yellow Urine Clarity Clear Urine pH 6.0 Urine Specific Vera 1.015 Urine Protein Negative mg/dL (NEG-TRACE) Urine Glucose (UA) Negative mg/dL (NEG) Urine Ketones (Stick) Negative mg/dL (NEG) Urine Blood Negative (NEG) Urine Nitrite Negative (NEG) Urine Bilirubin Negative (NEG) Urine Urobilinogen Dipstick 1.0 mg/dL (0.2 mg/dL) Urine Leukocyte Esterase Small (NEG) Urine RBC 0 /HPF (0-2) Urine WBC 20-40 /HPF (0-4) Urine Squamous Epithelial Cells Mod /LPF Urine Bacteria Few /HPF (0-FEW) Urine Mucus Marked /LPF White Blood Count 5.8 x10^3/uL (4.0-11.0) Red Blood Count 4.52 x10^6/uL (3.50-5.40) Hemoglobin 13.9 g/dL (12.0-15.5) Hematocrit 41.9 % (36.0-47.0) Mean Corpuscular Volume 93 fL (79-100) Mean Corpuscular Hemoglobin 31 pg (25-35) Mean Corpuscular Hemoglobin Concent 33 g/dL (31-37) Red Cell Distribution Width 13.5 % (11.5-14.5) Platelet Count 286 x10^3/uL (140-400) Neutrophils (%) (Auto) 49 % (31-73) Lymphocytes (%) (Auto) 43 % (24-48) Monocytes (%) (Auto) 6 % (0-9) Eosinophils (%) (Auto) 1 % (0-3) Basophils (%) (Auto) 1 % (0-3) Neutrophils # (Auto) 2.8 x10^3/uL (1.8-7.7) Lymphocytes # (Auto) 2.5 x10^3/uL (1.0-4.8) Monocytes # (Auto) 0.4 x10^3/uL (0.0-1.1) Eosinophils # (Auto) 0.1 x10^3/uL (0.0-0.7) Basophils # (Auto) 0.0 x10^3/uL (0.0-0.2) Sodium Level 141 mmol/L (136-145) Potassium Level 4.0 mmol/L (3.5-5.1) Chloride Level 105 mmol/L (98-107) Carbon Dioxide Level 28 mmol/L (21-32) Anion Gap 8 (6-14) Blood Urea Nitrogen 11 mg/dL (7-20) Creatinine 0.7 mg/dL (0.6-1.0) Estimated GFR (Cockcroft-Gault) 87.9 BUN/Creatinine Ratio 16 (6-20) Glucose Level 102 mg/dL (70-99) H Calcium Level 9.2 mg/dL (8.5-10.1) Total Bilirubin 0.6 mg/dL (0.2-1.0) Aspartate Amino Transferase (AST) 44 U/L (15-37) H Alanine Aminotransferase (ALT) 96 U/L (14-59) H Alkaline Phosphatase 117 U/L (46-116) H Total Protein 7.1 g/dL (6.4-8.2) Albumin 3.4 g/dL (3.4-5.0) Albumin/Globulin Ratio 0.9 (1.0-1.7) L Laboratory Tests 06/15/19 08:53 Laboratory Tests 06/15/19 08:53 EKG EKG [] Radiology/Procedures Radiology/Procedures [facility] [address] [place] [address] IMAGING REPORT Signed PATIENT: JEANNA CARTAGENA JACCOUNT: [id number] : 1965 LOCATION: ER AGE: 54 SEX: F EXAM STATUS: REG ER ORD. PHYSICIAN: SOURAV ORELLANA MD REASON: suprapubic/right lower quadrant pain PROCEDURE: CT ABD PELV W/ IV CONTRST ONLY CT ABD PELV W/ IV CONTRST ONLY Indication: Suprapubic and right lower quadrant pain Technique: Postcontrast CT imaging was performed of the abdomen pelvis, multiplanar reconstruction images submitted. No oral contrast was given. One or more of the following individualized dose reduction techniques were utilized for this examination: 1. Automated exposure control 2. Adjustment of the mA and/or kV according to patient size 3. Use of iterative reconstruction technique. Comparison: March 08, 2015 Findings: Appendix caliber is upper limits of normal as seen previously without adjacent inflammatory change, some internal gas present. There is no free fluid or free air. Accurate evaluation of bowel is limited without oral contrast. There is scattered mild colonic diverticulosis greatest of the descending colon not associated with adjacent inflammatory-type change. Bowel is not significantly dilated. There is greater degree of retained stool in the right colon, mild stool density in the terminal ileum. Both kidneys enhance, no hydronephrosis. Gallbladder is present without obvious intraluminal abnormality by CT. There is accessory spleen. No focal abnormality is identified of the liver, spleen, pancreas. There is no significant abnormality of the limited visualized lung bases. There is no adrenal nodularity. There is fairly advanced L5-S1 degenerative disc disease also disc osteophyte complex at this level contributing to mild narrowing of the left neural foramen. IMPRESSION: 1. There is no significant inflammatory change, no CT evidence of acute appendicitis. There is mild colonic diverticulosis without definitive evidence of diverticulitis. Electronically signed by: Asael Thayer MD (06/15/2019 9:56 AM) [facility] DICTATED and SIGNED BY: ASAEL THAYER MD DATE: 06/15/19 0956 [] Course & Med Decision Making Course & Med Decision Making Pertinent Labs and Imaging studies reviewed. (See chart for details) []54-year-old female presents to the emergency department with complaints of suprapubic, right lower quadrant, right flank pain. Patient states the pain is been ongoing for a couple of months. She states worse last evening. She is well described urinary incontinence. Patient denies any nausea, vomiting, vaginal discharge, vaginal bleeding, headache or visual changes. Nothing makes the pain worse, nothing makes the pain better. She states she's tried Tylenol as well as ibuprofen. She was scheduled for what sounds like an ultrasound however was unable to make that appointment as she was out of town. labs/Imaging reviewed - white blood cell count 5.8, AST 44, ALT 96, alkaline phosphatase 117 these numbers are slightly elevated however patient without evidence of right upper quadrant abdominal discomfort or Cook sign on exam. CT reviewed no evidence of acute intra-abdominal process, appendix appears to be normal. Urinalysis shows 20-40 white blood cells, small amount of leukocyte esterase. We'll plan to treat for urinary tract infection with Pyridium. Recommend follow-up with her primary care physician in 3-5 days. Discussed discharge with patient and family at bedside Dragon Disclaimer Dragon Disclaimer This electronic medical record was generated, in whole or in part, using a voice recognition dictation system. Departure Departure Impression: Primary Impression: UTI (urinary tract infection) Additional Impression: Suprapubic abdominal pain Disposition: 01 HOME, SELF-CARE Condition: STABLE Referrals: MATT BRAR MD (PCP) Patient Instructions: Abdominal Pain, Urinary Tract Infection, Child Additional Instructions: Recommend follow up with PCP 3 - 5 days Return to the ER with worsening symptoms, intractable pain, fever, altered mental status Tylenol/Motrin as needed for pain Take antibioitics as prescribed Take pyridium as prescribed Scripts Phenazopyridine Hcl (PYRIDIUM) 100 Mg Tablet 100 MG PO TID for dysuria, #10 TAB Prov: SOURAV ORELLANA MD 06/15/19 Cephalexin (KEFLEX) 500 Mg Capsule 2 CAP PO Q12HR for 5 Days, #20 CAP Prov: SOURAV ORELLANA MD 06/15/19 Problem Qualifiers Primary Impression: UTI (urinary tract infection) Urinary tract infection type: site unspecified Hematuria presence: without hematuria Qualified Codes: N39.0 - Urinary tract infection, site not specified SOURAV ORELLANA MD Jun 15, 2019 08:54
[2019-06-15] MEDS ORDERED: ONDANSETRON PF 4 MG/2 ML VIAL. IV ONE (09:00)
[2019-06-15] MEDS ORDERED: MORPHINE SULFATE 2 MG/ML VIAL. IV ONE (09:00)
[2019-06-15] MEDS ORDERED: CONTRAST GIVEN. MC PRN (09:15)
[2019-06-15 09:16] LABS: BASO % 1 % (0-3); CALCIUM 9.2 mg/dL (8.5-10.1); CREATININE 0.7 mg/dL (0.6-1.0); EOS # 0.1 x10^3/uL (0.0-0.7); EOS % 1 % (0-3); GFR 87.9; HEMATOCRIT 41.9 % (36.0-47.0); HEMOGLOBIN 13.9 g/dL (12.0-15.5); LYMPH # 2.5 x10^3/uL (1.0-4.8); LYMPH % 43 % (24-48); MEAN CORPUSCULAR HEMOGLOBIN 31 pg (25-35); MEAN CORPUSCULAR HGB CONC 33 g/dL (31-37); MEAN CORPUSCULAR VOLUME 93 fL (79-100); MONO # 0.4 x10^3/uL (0.0-1.1); MONO % 6 % (0-9); NEUT # 2.8 x10^3/uL (1.8-7.7); NEUT % 49 % (31-73); PLATELET COUNT 286 x10^3/uL (140-400); RED BLOOD COUNT 4.52 x10^6/uL (3.50-5.40); RED CELL DISTRIBUTION WIDTH 13.5 % (11.5-14.5); WHITE BLOOD COUNT 5.8 x10^3/uL (4.0-11.0)
[2019-06-15 09:22] LABS: ALBUMIN 3.4 g/dL (3.4-5.0); ALBUMIN/GLOBULIN RATIO 0.9 (1.0-1.7); TOTAL BILIRUBIN 0.6 mg/dL (0.2-1.0); TOTAL PROTEIN 7.1 g/dL (6.4-8.2)
[2019-06-15] MEDS ORDERED: IOHEXOL 300 MG/ML 100ML VIAL. IV ONE (09:30)
[2019-06-15 09:53] LABS: BACTERIA,URINE FEW /HPF (0-FEW); BILIRUBIN,URINE NEGATIVE (NEG); CLARITY,URINE CLEAR; COLOR,URINE YELLOW; NITRITE,URINE NEGATIVE (NEG); PROTEIN,URINE NEGATIVE (NEG-TRACE); RBC,URINE 0 /HPF (0-2); SQUAMOUS EPITHELIAL CELL,UR MOD /LPF; WBC,URINE 20-40 /HPF (0-4)
--- NOTE | 2019-06-15 09:59 | RAD ---
CT ABD PELV W/ IV CONTRST ONLY Indication: Suprapubic and right lower quadrant pain Technique: Postcontrast CT imaging was performed of the abdomen pelvis, multiplanar reconstruction images submitted. No oral contrast was given. One or more of the following individualized dose reduction techniques were utilized for this examination: 1. Automated exposure control 2. Adjustment of the mA and/or kV according to patient size 3. Use of iterative reconstruction technique. Comparison: March 08, 2015 Findings: Appendix caliber is upper limits of normal as seen previously without adjacent inflammatory change, some internal gas present. There is no free fluid or free air. Accurate evaluation of bowel is limited without oral contrast. There is scattered mild colonic diverticulosis greatest of the descending colon not associated with adjacent inflammatory-type change. Bowel is not significantly dilated. There is greater degree of retained stool in the right colon, mild stool density in the terminal ileum. Both kidneys enhance, no hydronephrosis. Gallbladder is present without obvious intraluminal abnormality by CT. There is accessory spleen. No focal abnormality is identified of the liver, spleen, pancreas. There is no significant abnormality of the limited visualized lung bases. There is no adrenal nodularity. There is fairly advanced L5-S1 degenerative disc disease also disc osteophyte complex at this level contributing to mild narrowing of the left neural foramen. IMPRESSION: 1. There is no significant inflammatory change, no CT evidence of acute appendicitis. There is mild colonic diverticulosis without definitive evidence of diverticulitis. Electronically signed by: Anthony Wheeler MD (06/15/2019 9:56 AM) [facility]
[2019-06-15] MEDS ORDERED: PHEN100T82 PO (10:15)
[2019-06-15] MEDS ORDERED: CEPH-264 PO (10:15)
== END 2019-06-15 10:29 | disposition home or self-care (01) ==
LOC: ER 08:26
DX: N39.0 Urinary tract infection, site not specified (principal); F41.9 Anxiety disorder, unspecified; E78.00 Pure hypercholesterolemia, unspecified; G43.909 Migraine, unspecified, not intractable, without status migrainosus; Z90.89 Acquired absence of other organs
CPT/HCPCS: 36415; 74177; 80053; 81001; 85025; 87086; 96374; 96375; 99285; J2270; J2405; Q9967; 87186

== ENCOUNTER 2019-09-23 09:24 | Emergency (ER) | payer OTHER ==
[~2019-09-23] VITALS: Ht 157.5 cm; Wt 82.0 kg
[~2019-09-23 09:24] MED LIST changes: +CEPH-264 PO; +KETO200T11 PO; -KETO200T3 PO; +PHEN100T82 PO; +SIMV10TA15 PO; -SIMV10TA3 PO
[2019-09-23] MEDS ORDERED: KETOROLAC 30 MG/ML VIAL. IVP ONE (10:00)
[2019-09-23] MEDS ORDERED: ONDANSETRON PF 4 MG/2 ML VIAL. IVP ONE (10:00)
[2019-09-23 10:07] LABS: BASO # 0.1 x10^3/uL (0.0-0.2); BASO % 1 % (0-3); EOS # 0.1 x10^3/uL (0.0-0.7); EOS % 1 % (0-3); HEMATOCRIT 40.9 % (36.0-47.0); HEMOGLOBIN 13.9 g/dL (12.0-15.5); LYMPH # 2.6 x10^3/uL (1.0-4.8); LYMPH % 45 % (24-48); MEAN CORPUSCULAR HEMOGLOBIN 31 pg (25-35); MEAN CORPUSCULAR HGB CONC 34 g/dL (31-37); MEAN CORPUSCULAR VOLUME 91 fL (79-100); MONO # 0.3 x10^3/uL (0.0-1.1); MONO % 5 % (0-9); NEUT # 2.8 x10^3/uL (1.8-7.7); NEUT % 48 % (31-73); PLATELET COUNT 283 x10^3/uL (140-400); RED BLOOD COUNT 4.51 x10^6/uL (3.50-5.40); RED CELL DISTRIBUTION WIDTH 12.4 % (11.5-14.5); WHITE BLOOD COUNT 5.8 x10^3/uL (4.0-11.0)
[2019-09-23 10:18] LABS: CALCIUM 9.1 mg/dL (8.5-10.1); CREATININE 0.7 mg/dL (0.6-1.0); GFR 87.9; POTASSIUM 3.7 mmol/L (3.5-5.1)
[2019-09-23 10:24] LABS: ALBUMIN 3.7 g/dL (3.4-5.0); ALBUMIN/GLOBULIN RATIO 1.1 (1.0-1.7); MAGNESIUM 1.9 mg/dL (1.8-2.4); TOTAL BILIRUBIN 0.6 mg/dL (0.2-1.0); TOTAL PROTEIN 7.2 g/dL (6.4-8.2)
--- NOTE | 2019-09-23 10:24 | RAD ---
EXAM: CHEST 1 VIEW History: Chest pain COMPARISON: 06/19/2018 TECHNIQUE: Single portable radiograph of the chest FINDINGS: The cardiac silhouette is unremarkable. The lungs are clear bilaterally. The costophrenic sulci are clear and well demarcated. IMPRESSION: No radiographic evidence of an acute cardiopulmonary process. Electronically signed by: Ezra Chauhan MD (09/23/2019 10:21 AM) [facility]
[2019-09-23 11:03] LABS: BILIRUBIN,URINE NEGATIVE (NEG); CLARITY,URINE CLEAR; COLOR,URINE YELLOW; NITRITE,URINE NEGATIVE (NEG); PH,URINE 6.5; PROTEIN,URINE NEGATIVE (NEG-TRACE); UROBILINOGEN,URINE 0.2 mg/dL (0.2 mg/dL)
[2019-09-23 11:09] LABS: BACTERIA,URINE 0 /HPF (0-FEW); RBC,URINE RARE /HPF (0-2); SQUAMOUS EPITHELIAL CELL,UR OCC /LPF; WBC,URINE OCC /HPF (0-4)
[2019-09-23] MEDS ORDERED: traMADol 50 MG TABLET PO STA (11:10)
[2019-09-23 11:12] VITALS: BP 142/73
[2019-09-23] MEDS ORDERED: ONDANSETRON ODT 4 MG TAB.RAPDIS. PO ONE (11:15)
--- NOTE | 2019-09-23 11:21 | EKG ---
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
--- NOTE | 2019-09-23 11:24 | PHYS DOC ---
Past Medical History Past Medical History: Anxiety, High Cholesterol, Migraines, Other Additional Past Medical Histor: bells palsy, HIGH TRIGLYCERIDE Past Surgical History: Tonsillectomy, Other Additional Past Surgical Histo: bilat breast reduction Alcohol Use: None Drug Use: None Adult General Chief Complaint Chief Complaint: CHEST PAIN [facility] HPI Patient is a 54 year old female with history of dyslipidemia, anxiety, migraine headache, Whiteside's palsy who presents with pain, chest pain and headache and facial numbness. Patient states she was not able to fall sleep for the last 3 nights because of the stress condition going on at her life. Patient states she has had headache for the last 3 days with nausea and photophobia. Patient states this morning she had left sided facial numbness without new weakness and also had left sided chest pain with radiation to left arm and left neck associated with nausea and one episode of vomiting and rated her pain 8/10 as a sharp pain. Patient complaining of shortness of breath and feeling something stuck in her throat. Patient called her primary care physician recommended to come to ER for evaluation of her chest pain and numbness of her face because patient believes she did not have a complete treatment for her Whiteside's palsy and cause remaining weakness of left side of her face. She is very anxious about her health and comp laining of multiple problems. Review of Systems Review of Systems Constitutional: Denies fever or chills [] Eyes: Denies change in visual acuity, redness, or eye pain [] HENT: Denies nasal congestion or sore throat [] Respiratory: Denies cough or shortness of breath [] Cardiovascular: No additional information not addressed in HPI [] GI: Denies abdominal pain, nausea, vomiting, bloody stools or diarrhea [] : Denies dysuria or hematuria [] Musculoskeletal: Denies back pain or joint pain [] Integument: Denies rash or skin lesions [] Neurologic: Denies headache, focal weakness or sensory changes [] Endocrine: Denies polyuria or polydipsia [] All other systems were reviewed and found to be within normal limits, except as documented in this note. Current Medications Current Medications Current Medications Medications (Trade) Dose Ordered Sig/Matias Start Time Stop Time Status Last Admin Dose Admin Alprazolam (Xanax) 0.5 mg 1X ONCE 09/23/19 11:30 09/23/19 11:31 DC Ketorolac Tromethamine (Toradol 30mg Vial) 30 mg 1X ONCE 09/23/19 10:00 09/23/19 11:12 DC Ondansetron HCl (Zofran Odt) 4 mg 1X ONCE 09/23/19 11:15 09/23/19 11:16 DC 09/23/19 11:21 4 MG Ondansetron HCl (Zofran) 4 mg 1X ONCE 09/23/19 10:00 09/23/19 11:12 DC Tramadol HCl (Ultram) 50 mg 1X STAT 09/23/19 11:10 09/23/19 11:15 DC 09/23/19 11:21 50 MG Allergies Allergies Allergies Coded Allergies Type Severity Reaction Last Updated Verified azithromycin Allergy Intermediate 04/12/15 No niacin Allergy Intermediate burning sensation 04/12/15 Yes I S O L A T I O N *CONTACT* Allergy Unknown 06/18/19 Yes Physical Exam Physical Exam Constitutional: Well developed, well nourished, mild distress, non-toxic appearance. [] HENT: Normocephalic, atraumatic. Eyes: PERRLA, EOMI, conjunctiva normal, no discharge. [] Neck: Normal range of motion, no tenderness, supple, no stridor. [] Cardiovascular:Heart rate regular rhythm, no murmur [] Lungs & Thorax: Bilateral breath sounds clear to auscultation reproducible left-sided chest pain[] Abdomen: Bowel sounds normal, soft, no tenderness, no masses, no pulsatile masses. [] Skin: Warm, dry, no erythema, no rash. [] Back: No tenderness, no CVA tenderness. [] Extremities: No tenderness, no cyanosis, no clubbing, ROM intact, no edema. [] .no focal deficits noted. [] Psychologic: Affect is, anxious, mood normal. [] Current Patient Data Vital Signs Vital Signs Date Time Temp Pulse Resp B/P (MAP) Pulse Ox O2 Delivery O2 Flow Rate FiO2 09/23/19 11:21 22 98 Room Air 09/23/19 10:00 98.5 60 128/73 (91) 98.5 Lab Values Laboratory Tests Test 09/23/19 09:58 09/23/19 10:52 White Blood Count 5.8 x10^3/uL (4.0-11.0) Red Blood Count 4.51 x10^6/uL (3.50-5.40) Hemoglobin 13.9 g/dL (12.0-15.5) Hematocrit 40.9 % (36.0-47.0) Mean Corpuscular Volume 91 fL (79-100) Mean Corpuscular Hemoglobin 31 pg (25-35) Mean Corpuscular Hemoglobin Concent 34 g/dL (31-37) Red Cell Distribution Width 12.4 % (11.5-14.5) Platelet Count 283 x10^3/uL (140-400) Neutrophils (%) (Auto) 48 % (31-73) Lymphocytes (%) (Auto) 45 % (24-48) Monocytes (%) (Auto) 5 % (0-9) Eosinophils (%) (Auto) 1 % (0-3) Basophils (%) (Auto) 1 % (0-3) Neutrophils # (Auto) 2.8 x10^3/uL (1.8-7.7) Lymphocytes # (Auto) 2.6 x10^3/uL (1.0-4.8) Monocytes # (Auto) 0.3 x10^3/uL (0.0-1.1) Eosinophils # (Auto) 0.1 x10^3/uL (0.0-0.7) Basophils # (Auto) 0.1 x10^3/uL (0.0-0.2) Sodium Level 143 mmol/L (136-145) Potassium Level 3.7 mmol/L (3.5-5.1) Chloride Level 106 mmol/L (98-107) Carbon Dioxide Level 29 mmol/L (21-32) Anion Gap 8 (6-14) Blood Urea Nitrogen 10 mg/dL (7-20) Creatinine 0.7 mg/dL (0.6-1.0) Estimated GFR (Cockcroft-Gault) 87.9 BUN/Creatinine Ratio 14 (6-20) Glucose Level 109 mg/dL (70-99) H Calcium Level 9.1 mg/dL (8.5-10.1) Magnesium Level 1.9 mg/dL (1.8-2.4) Total Bilirubin 0.6 mg/dL (0.2-1.0) Aspartate Amino Transferase (AST) 34 U/L (15-37) Alanine Aminotransferase (ALT) 61 U/L (14-59) H Alkaline Phosphatase 109 U/L (46-116) Creatine Kinase 94 U/L (26-192) Troponin I Quantitative < 0.017 ng/mL (0.000-0.055) PG-Jcr-H-Type Natriuretic Peptide 109 pg/mL (0-124) Total Protein 7.2 g/dL (6.4-8.2) Albumin 3.7 g/dL (3.4-5.0) Albumin/Globulin Ratio 1.1 (1.0-1.7) Lipase 108 U/L (73-393) Urine Collection Type Unknown Urine Color Yellow Urine Clarity Clear Urine pH 6.5 Urine Specific [place] 1.010 Urine Protein Negative mg/dL (NEG-TRACE) Urine Glucose (UA) Negative mg/dL (NEG) Urine Ketones (Stick) Negative mg/dL (NEG) Urine Blood Negative (NEG) Urine Nitrite Negative (NEG) Urine Bilirubin Negative (NEG) Urine Urobilinogen Dipstick 0.2 mg/dL (0.2 mg/dL) Urine Leukocyte Esterase Negative (NEG) Urine RBC Rare /HPF (0-2) Urine WBC Occ /HPF (0-4) Urine Squamous Epithelial Cells Occ /LPF Urine Bacteria 0 /HPF (0-FEW) Laboratory Tests 09/23/19 09:58 Laboratory Tests 09/23/19 09:58 EKG EKG EKG interpreted by me. EKG at 09. Showed normal sinus rhythm at rate of 67, normal OR and QT interval, no acute ST and T-wave elevation. Radiology/Procedures Radiology/Procedures [facility] [address] [place] [address] IMAGING REPORT Signed PATIENT: JEANNA CARTAGENAUNT: [id number] : 1965 LOCATION: ER AGE: 54 SEX: F EXAM STATUS: REG ER ORD. PHYSICIAN: YUNIOR CROFT MD REASON: chest pain PROCEDURE: PORTABLE CHEST 1V EXAM: CHEST 1 VIEW History: Chest pain COMPARISON: 06/19/2018 TECHNIQUE: Single portable radiograph of the chest FINDINGS: The cardiac silhouette is unremarkable. The lungs are clear bilaterally. The costophrenic sulci are clear and well demarcated. IMPRESSION: No radiographic evidence of an acute cardiopulmonary process. Electronically signed by: Ezra Chauhan MD (09/23/2019 10:21 AM) [facility] DICTATED and SIGNED BY: EZRA CHAUHAN MD DATE: 09/23/19 1021 [facility] [address] [place] [address] IMAGING REPORT Signed PATIENT: JEANNA CARTAGENAUNT: [id number] : 1965 LOCATION: ER AGE: 54 SEX: F EXAM STATUS: REG ER ORD. PHYSICIAN: YUNIOR CROFT MD REASON: left facial numbness intermittently for 4 days PROCEDURE: CT HEAD WO CONTRAST STUDY: CT head without contrast INDICATION: Left facial numbness intermittently for the past 4 days. COMPARISON: 06/19/2018 TECHNIQUE: Axial CT imaging through the head without the use of intravenous contrast. Sagittal and coronal reformats were obtained. One or more of the following individualized dose reduction techniques were utilized for this examination: 1. Automated exposure control 2. Adjustment of the mA and/or kV according to patient size 3. Use of iterative reconstruction technique. FINDINGS: No acute intracranial hemorrhage. Maintained -white matter interface. No mass effect, midline shift or hydrocephalus. Unremarkable scalp and partially imaged orbits. Intact calvarium. IMPRESSION: No acute intracranial abnormality by CT. Electronically signed by: MARK WALLER MD (09/23/2019 11:42 AM) [facility] DICTATED and SIGNED BY: MARK WALLER MD DATE: 09/23/19 1142 Course & Med Decision Making Course & Med Decision Making Pertinent Labs and Imaging studies reviewed. (See chart for details) Evaluation of patient in ER showed 54-year-old female patient with heart score of 2 complaining of multiple medical problems including chest pain, paresthesia, nausea vomiting, neck pain and shoulder pain. Reducible chest wall pain with unremarkable chest x-ray, EKG, labs and CT head. Patient better with treatment in ER. Plan discharge patient home with diagnosis of muscular skeletal chest pain and anxiety and insomnia. I've spoken with the patient and/or caregivers. I've explained the patient's condition, diagnosis and treatment plan based on information available to me at this time. I've answered the patient's and/or caregivers questions and addressed any concerns. The patient and/or caregivers have a good understanding the patient's diagnosis, condition and treatment plan as can be expected at this point. Vital signs have been stabilized. The patient's condition is stable for discharge from the emergency department. The patient will pursue further outpatient evaluation with her primary care provider or other designated consulting physician as outlined in the discharge instructions. Patient and/or caregivers are agreeable to this plan of care and follow-up instructions have been explained in detail. The patient and/or caregivers have received these instructions in written format and expressed understanding of these discharge instructions. The patient and her caregivers are aware that if any significant change in condition or worsening of symptoms should prompt him to immediately return to this of the closest emergency department. If an emergent department is not readily available I would encourag e him to call 911. Joey Disclaimer Joey Disclaimer This electronic medical record was generated, in whole or in part, using a voice recognition dictation system. Departure Departure Impression: Primary Impression: Anxiety about health Additional Impressions: Musculoskeletal chest pain Insomnia History of Whiteside's palsy Paresthesia Nausea Disposition: HOME, SELF-CARE (121) Condition: IMPROVED Referrals: UNKNOWN PCP NAME (PCP) Patient Instructions: Anxiety and Panic Attacks, Chest Wall Pain, Insomnia, Nausea, Adult Additional Instructions: Drink plenty of liquids Follow-up with your primary care physician in 3-5 days Return to ER if not getting better Thank you for visiting [facility]. We appreciate you trusting us with your care. If any additional problems come up don't hesitate to return to visit us. Please follow up with your primary care provider so they can plan additional care if needed and know about the problem that you had. If symptoms worsen come back to the Emergency Department. Any concerning symptoms that start such as chest pain, shortness of air, weakness or numbness on one side of the body, running high fevers or any other concerning symptoms return to the ER. Scripts Ondansetron Hcl (ZOFRAN) 4 Mg Tablet 1 TAB PO PRN Q6-8HRS for nausea, #12 TAB Prov: YUNIOR CROFT MD 09/23/19 Tramadol Hcl (ULTRAM) 50 Mg Tablet 50 MG PO Q6HRS PRN for PAIN, #14 TAB 0 Refills Prov: YUNIOR CROFT MD 09/23/19 Hydroxyzine Hcl (HYDROXYZINE HCL) 25 Mg Tablet 1 TAB PO QHS PRN for INSOMNIA, #10 TAB Prov: YUNIOR CROFT MD 09/23/19 The HEART Score for CP Pts HEART Score for Chest Pain: HEART Score for Chest Pain Response (Comments) Value History Slighlty/Non-Suspicious 0 ECG Normal 0 Age >45 - < 65 1 Risk Factors 1 or 2 Risk Factors 1 Troponin < Normal Limit 0 Total 2 Risk Factors: Risk Factors: DM, Current or recent (<one month) smoker, HTN, HLP, family history of CAD, obesity. Risk Scores: Score 0 - 3: 2.5% MACE over next 6 weeks - Discharge Home Score 4 - 6: 20.3% MACE over next 6 weeks - Admit for Clinical Observation Score 7 - 10: 72.7% MACE over next 6 weeks - Early Invasive Strategies Problem Qualifiers Additional Impressions: Insomnia Insomnia type: unspecified Qualified Codes: G47.00 - Insomnia, unspecified YUNIOR CROFT MD Sep 23, 2019 11:24
[2019-09-23] MEDS ORDERED: ALPRAZolam 0.5 MG TABLET PO ONE (11:30)
--- NOTE | 2019-09-23 11:45 | RAD ---
STUDY: CT head without contrast INDICATION: Left facial numbness intermittently for the past 4 days. COMPARISON: 06/19/2018 TECHNIQUE: Axial CT imaging through the head without the use of intravenous contrast. Sagittal and coronal reformats were obtained. One or more of the following individualized dose reduction techniques were utilized for this examination: 1. Automated exposure control 2. Adjustment of the mA and/or kV according to patient size 3. Use of iterative reconstruction technique. FINDINGS: No acute intracranial hemorrhage. Maintained -white matter interface. No mass effect, midline shift or hydrocephalus. Unremarkable scalp and partially imaged orbits. Intact calvarium. IMPRESSION: No acute intracranial abnormality by CT. Electronically signed by: MARK WALLER MD (09/23/2019 11:42 AM) [facility]
[2019-09-23] MEDS ORDERED: TRAM-48 PO (12:22)
[2019-09-23] MEDS ORDERED: HYDR25TA PO (12:22)
[2019-09-23] MEDS ORDERED: ONDA4TAB7 PO (12:22)
== END 2019-09-23 12:30 | disposition home or self-care (01) ==
LOC: ER 09:24
DX: R07.89 Other chest pain (principal); F41.9 Anxiety disorder, unspecified; G47.00 Insomnia, unspecified; R20.2 Paresthesia of skin; R11.2 Nausea with vomiting, unspecified; R06.02 Shortness of breath; H53.149 Visual discomfort, unspecified; E78.00 Pure hypercholesterolemia, unspecified; G43.909 Migraine, unspecified, not intractable, without status migrainosus; G51.0 Bell's palsy; Z90.89 Acquired absence of other organs; Z98.890 Other specified postprocedural states; Z88.1 Allergy status to other antibiotic agents; Z88.8 Allergy status to other drugs, medicaments and biological substances
CPT/HCPCS: 36415; 70450; 71045; 80053; 81001; 82550; 83690; 83735; 83880; 84484; 85025; 93005; 99285; Q0162